=== PATIENT | female | born 1945 | race Caucasian/White ===

== ENCOUNTER → 2017-02-23 | Outpatient (CLI) | payer BC, MEDICARE ==
[2016-01-25 14:36] VITALS: BP 119/65
[~2017-02-23] MED LIST: ACET325T9 PO; ASPI-482 PO; ASPI325T11 PO; B12/1TAB PO; B6/F1TAB PO; BISA-42 PO; CELE100C PO; CELE200C PO; CETI10TA22 PO; CHOL200024 PO; CICL34.6 TP; DIPH50CA PO; DOCU-27 PO; ESZO3TAB9 PO; FEBU80TA2 PO; FERR159T3 PO; FERR325T58 PO; FLUT1DIS3 IH; FURO-68 PO; FURO80TA72 PO; GARL10002 PO; GINK120C PO; GLUC1TAB26 PO; HYDR200T PO; LEVO175T5 PO; LOSA100T6 PO; MELA10TA PO; METO10TA81 PO; MULT-208 PO; OMEG500C3 PO; PANT40GR PO; POTA20PA PO; PSYL660P18 PO; SIMV20TA3 PO; TRIA1TAB2 PO; UBID100C12 PO; VENTOLIN HFA18 GM INH
[2017-02-23 11:59] LABS: BASO # 0.1 x10^3/uL (0.0-0.2); BASO % 1 % (0-3); EOS % 7 % (0-3); HEMATOCRIT 38.7 % (36.0-47.0); HEMOGLOBIN 12.5 g/dL (12.0-15.5); LYMPH % 15 % (24-48); MEAN CORPUSCULAR HEMOGLOBIN 30 pg (25-35); MEAN CORPUSCULAR HGB CONC 32 g/dL (31-37); MEAN CORPUSCULAR VOLUME 92 fL (79-100); MONO % 8 % (0-9); NEUT % 68 % (31-73); PLATELET COUNT 373 x10^3/uL (140-400); RED CELL DISTRIBUTION WIDTH 14.6 % (11.5-14.5); WHITE BLOOD COUNT 6.5 x10^3/uL (4.0-11.0)
[2017-02-23 12:08] LABS: INR 1.1 (0.8-1.1); PROTHROMBIN TIME PATIENT 13.1 SEC (11.7-14.0)
[2017-02-23 12:29] LABS: ALBUMIN 3.4 g/dL (3.4-5.0); CALCIUM 9.4 mg/dL (8.5-10.1); CREATININE 1.3 mg/dL (0.6-1.0); GFR 40.5
[2017-02-23 12:56] LABS: BILIRUBIN,URINE NEGATIVE (NEG); GLUCOSE,URINE NEGATIVE (NEG); NITRITE,URINE NEGATIVE (NEG); PROTEIN,URINE NEGATIVE (NEG-TRACE); UROBILINOGEN,URINE 0.2 mg/dL (0.2 mg/dL)
[2017-02-23 13:06] LABS: BACTERIA,URINE FEW /HPF (0-FEW); RBC,URINE 0 /HPF (0-2); SQUAMOUS EPITHELIAL CELL,UR FEW /LPF; WBC,URINE OCC /HPF (0-4)
--- NOTE | 2017-02-23 13:07 | RAD ---
Indication preop. Anticipated knee surgery. PA and lateral views of the chest were obtained. Comparison is made to an exam 07/28/2012. The heart and pulmonary vessels are unremarkable. There is no acute parenchymal infiltrate. Significant pleural fluid is not seen. There is no pneumothorax. There is a large hiatus hernia. There is moderate compression of a midthoracic vertebral body segment representing a new finding compared to the prior study. IMPRESSION: No acute finding. Large hiatus hernia. Moderate compression of a midthoracic vertebral body segment new relative to the study 07/28/2012
== END | disposition home or self-care (01) ==
LOC: SURGPAT 10:32
PROVIDERS: ATTEND Orthopaedic Surgery
DX: M17.11 Unilateral primary osteoarthritis, right knee (principal)
CPT/HCPCS: 36415; 71020; 80048; 81001; 82040; 83036; 85027; 85610; 85651; 85730; 87641

== ENCOUNTER 2017-03-10 05:41 | Inpatient (IN) | payer BC, MEDICARE ==
--- NOTE | 2017-03-09 16:50 | PDOC1 ---
History and Physical Date of Admission Date of Admission DATE: 03/10/17 Identification/Chief Complaint Chief Complaint right knee osteoarthritis pain Problems: Source Source: Chart review History of Present Illness History of Present Illness Ms. Perdomo is a 71 year old female patient with right knee pain. She has left total knee arthroplasty on 01/22/16, which is doing well. She has tried and failed nonoperative treatment of right knee knee osteoarthritis. She is not able to perform her activities of daily living due to the pain. Past Medical History Cardiovascular: HTN, Hyperlipidemia Pulmonary: Asthma GI: GERD Musculoskeletal: Osteoarthritis Endocrine: Hypothyroidism Past Surgical History Past Surgical History: Cataract Removal, Total hip replacement, Total knee replacement, Tonsillectomy, Hysterectomy, Other (parathyroidectomy, back surgery ) Family History Family History: Cancer, Diabetes, Heart Disease, Stroke Social History Smoke: Quit (2002) ALCOHOL: rare Drugs: None Current Medications Current Medications Current Medications Morphine Sulfate 5 mg/Ketorolac Tromethamine 30 mg/Ropivacaine 60 ml/ Epinephrine HCl 0.5 mg/Sodium Chloride 100 ml @ 100 mls/hr 1X PERIOP ONCE INT ART ; Start 03/10/17 at 06:00; Stop 03/10/17 at 06:59 Fentanyl Citrate (Fentanyl 2ml Vial) 50 mcg PRN Q5MIN PRN IV Acute Pain; Start 03/09/17 at 12:15; Stop 03/10/17 at 12:14 Meperidine HCl (Demerol) 12.5 mg PRN Q5MIN PRN IV SHIVERING; Start 03/09/17 at 12:15; Stop 03/10/17 at 12:14 Prochlorperazine Edisylate (Compazine) 5 mg PRN Q6HRS PRN IV Nausea/Vomiting, 1st Choice; Start 03/09/17 at 12:15; Stop 03/10/17 at 12:14 Diphenhydramine HCl (Benadryl) 12.5 mg PRN Q2HR PRN IV ITCHING; Start 03/09/17 at 12:15; Stop 03/10/17 at 12:14 Midazolam HCl (Versed) 2 mg PRN 1X PRN IV PRIOR TO PROCEDURE; Start 03/09/17 at 12:15; Stop 03/10/17 at 12:14 Midazolam HCl (Versed) 1 mg PRN 1X PRN IV PRIOR TO PROCEDURE; Start 03/09/17 at 12:15; Stop 03/10/17 at 12:14 Fentanyl Citrate (Fentanyl 2ml Vial) 25 mcg PRN Q5MIN PRN IV X 2 DOSES FOR PAIN ; Start 03/09/17 at 12:15; Stop 03/10/17 at 12:14 Fentanyl Citrate (Fentanyl 2ml Vial) 50 mcg PRN Q5MIN PRN IV X 2 DOSES FOR PAIN ; Start 03/09/17 at 12:15; Stop 03/10/17 at 12:14 Ringer's Solution 1,000 ml @ 125 mls/hr Q8H IV ; Start 03/09/17 at 12:11; Stop 03/10/17 at 00:10 Lidocaine HCl 2 ml 1X PRN PRN ID IV START; Start 03/09/17 at 12:15; Stop at 12:14 Active Scripts Active Reported Zyrtec (Cetirizine Hcl) 10 Mg Tablet 10 Mg PO DAILY Melatonin 10 Mg Tablet 10 Mg PO HS Diphenhydramine Hcl 50 Mg Capsule 50 Mg PO HS Aspirin Ec (Aspirin) 325 Mg Tablet.dr 1 Tab PO BID Iron Supplement (Ferrous Sulfate) 325 Mg Tablet 1 Tab PO BID Ciclopirox 8% Treatment Kit (Ciclopirox/Ure/Camph/Menth/Euc) 34.6 Ml Solution 34.6 Ml TP DAILY may resume this as regualrly scheduled Iron (Ferrous Sulfate, Dried) 159 Mg Tablet.er 159 Mg PO DAILY last dose this am next dose tomorrow am Metamucil (Psyllium Husk) 660 Gm Powder 660 Gm PO DAILY not given in the hospital may reume when available Dulcolax (Bisacodyl) 5 Mg Tablet.dr 2 Tab PO HS last dose last night next dose tonight Simvastatin 20 Mg Tablet 1 Tab PO QHS last dose last night next dose tonight Plaquenil (Hydroxychloroquine Sulfate) 200 Mg Tablet 200 Mg PO BID last dose this am next dose tonight Colace (Docusate Sodium) 100 Mg Capsule 400 Cap PO HS last dose last night next dose tonight Levothyroxine Sodium 175 Mcg Tablet 1 Tab PO DAILY last dose this am next dose tomorrow am Lasix (Furosemide) 80 Mg Tablet 1 Tab PO DAILY16 last dose yesterday next dose is due when home Lasix (Furosemide) 40 Mg Tablet 1 Tab PO DAILY last dose this am next dose tomorrow am Reglan (Metoclopramide Hcl) 10 Mg Tablet 1 Tab PO QID last dose at 1100 next dose with supper Ventolin Hfa Inhaler (Albuterol Sulfate) 18 Gm Hfa.aer.ad 2 Puff INH QID not used in hospital may resume when needed Advair 250-50 Diskus (Fluticasone/Salmeterol) 1 Each Disk.w.dev 1 Puff IH BID last dose this am next dose tonight Aesmreyjji-Npxythiatvx-Xsg Tab (Gluc/Leo-Msm#2/C/D3/Trev/Born) 1 Each Tablet 1 Each PO Fish Oil (Zamora-3 Fatty Acids) 500 Mg Capsule 500 Mg PO not given in hospital may resume when available Lunesta (Eszopiclone) 3 Mg Tablet 1 Tab PO QHS last dose last night next dose tonight Maxzide 37.5 Mg-25 Mg Tablet (Triamterene/Hydrochlorothiazid) 1 Each Tablet 1 Tab PO DAILY last dose this am next dose tomorrow am Losartan Potassium 100 Mg Tablet 100 Mg PO DAILY last dose this am next dose tomorrow am Co Q-10 (Ubidecarenone) 100 Mg Capsule 100 Mg PO not given in hospital may reusme when available Foltx Tablet (B12/Levomefolate Calcium/B-6) 1 Each Tablet 1 Each PO HS not given in the hospital may resume when available Uloric (Febuxostat) 80 Mg Tablet 1 Tab PO DAILY last dose this morning next dose tomorrow am Protonix (Pantoprazole Sodium) 40 Mg Granpkt.dr 40 Mg PO DAILY last dose next dose is at 1600 D3 Dots (Cholecalciferol (Vitamin D3)) 2,000 Unit Tablet 1,000 Unit PO not given in hospital may resume when available Klor-Con (Potassium Chloride) 20 Meq Packet 40 Meq PO AFTRNOON last dos yesterday afternoon next dose this afternoon at 1600 Klor-Con (Potassium Chloride) 20 Meq Packet 20 Meq PO DAILY05 last dose this am next dose tomorrow am Ginkgo Biloba (Ginkgo Biloba Extract) 120 Mg Capsule 120 Mg PO Garlic 1,000 Mg Capsule 1,000 Mg PO not given in hospital may resume when available Multi-Day Vitamins (Multivitamin) 1 Each Tablet 1 Tab PO DAILY last dose this am next dose tomorrow am Allergies Allergies: Coded Allergies: propoxyphene (Verified Allergy, Intermediate, Itching, 01/22/16) erythromycin base (Verified Adverse Reaction, Intermediate, Hives, 01/22/16) hydromorphone (Verified Adverse Reaction, Intermediate, Itching, 01/22/16) morphine (Verified Adverse Reaction, Intermediate, Itching, 01/22/16) Uncoded Allergies: CHLORHEXADINE (Adverse Reaction, Severe, PURITIS, 02/23/17) Physical Exam General: Alert, Oriented X3, Cooperative, No acute distress HEENT: Atraumatic, EOMI Lungs: Normal air movement Heart: RRR Abdomen: Soft Extremities: No clubbing, No cyanosis, Normal pulses Skin: No rashes, No breakdown, No significant lesion Neuro: Normal speech, Sensation intact Psych/Mental Status: Mental status NL, Mood NL VTE Prophylaxis Ordered VTE Prophylaxis Devices: Yes VTE Pharmacological Prophylaxi: Yes Assessment/Plan Assessment/Plan Right knee osteoarthritis. Dr. Yepez and the patient discussed the potential risks of infection, neurovascular injury, bleeding, blood clots, need for revision surgery, or other potential surgical or anesthetic complications. She would like to proceed with total knee arthroplasty at a mutually convenient date, in February 2017. Last time she had trouble with constipation and requested Movantik prescription postoperatively, which sounds reasonable. We will use Movantik 25 mg po daily. She reports some sensitivities and allergies, and has the journey two "lady's knee" Oxinium on the left with size 4 femur, size 3 tibia, 32 mm patella. She had trouble with the topical chlorhexidine wipes last time, and I recommended using topical rubbing alcohol instead preoperatively. Finally, she did not like taking Celebrex, and prefers to use naproxen 500 mg twice a day which is reasonable, but some risk of bleeding. We will plan the naproxen for inflammation. ANGELLA LANGE Mar 09, 2017 16:50
[2017-03-09] MEDS: IV RINGERS,LACTATED 1000ML 1,000 ML IV SCH (20:11)
[~2017-03-10] VITALS: Ht 167.6 cm; Wt 107.0 kg
[2017-03-10] VITALS (9 sets, daily range): BP systolic 97–117; BP diastolic 53–73
[~2017-03-10 05:41] MED LIST changes: +DOCU-109 PO; -DOCU-27 PO; +ESZO3TAB28 PO; -ESZO3TAB9 PO; +LIDOCAINE 1% 1 ML SYRINGE. ID PRN; +MEPERIDINE PF 25 MG/ML VIAL. IV PRN; +MIDAZOLAM HCL/PF 2 MG/2 ML VIAL. IV PRN; +PROCHLORPERAZINE 10 MG/2 ML VIAL. IV PRN; -UBID100C12 PO; +UBID100C40 PO; +diphenhydrAMINE 50 MG/ML VIAL IV PRN; +fentaNYL PF VIAL 100 MCG/2 ML VIAL IV PRN
[2017-03-10] MEDS ORDERED: MORPHINE SULFATE 5 MG, KETOROLAC TROMETHAMINE 30 MG, ROPIVacaine 0.5% PF 60 ML, EPINEPH... INT ART ONE ×5 (06:00)
[2017-03-10] MEDS ORDERED: TRANEXAMIC ACID 1,000 MG in IV NORMAL SALINE 50ML 50 ML INJ ONE ×2 (06:00→08:00)
[2017-03-10] MEDS ORDERED: TRAM50TA PO (06:12)
[2017-03-10] MEDS: IV RINGERS,LACTATED 1000ML 1,000 ML IV SCH (06:39)
[2017-03-10] MEDS ORDERED: TOBRAMYCIN POWDER 1.2 GM VIAL. ONE (06:44)
[2017-03-10] MEDS ORDERED: VANCOMYCIN 1 GM VIAL. ONE (06:44)
[2017-03-10] MEDS ORDERED: DEXAMETHASONE SOD PHOS 20 MG/5 ML VIAL. ONE (06:57)
[2017-03-10] MEDS ORDERED: PROPOFOL 20 ML IV ONE ×2 (06:57→07:44)
[2017-03-10] MEDS ORDERED: LIDOCAINE 2% PF Vial for OR 5 ML VIAL. ONE (06:57)
[2017-03-10] MEDS ORDERED: ONDANSETRON PF 4 MG/2 ML VIAL. ONE (06:57)
[2017-03-10] MEDS ORDERED: ePHEDrine PF IN SALINE 50 MG/5 ML DISP.SYRIN IV ONE ×2 (06:57→10:29)
[2017-03-10] MEDS ORDERED: fentaNYL PF VIAL 100 MCG/2 ML VIAL ONE ×2 (06:58→07:36)
[2017-03-10] MEDS ORDERED: ROCURONIUM 50 MG/5 ML VIAL. ONE (07:03)
[2017-03-10] MEDS ORDERED: MIDAZOLAM HCL/PF 5 MG/5 ML VIAL. ONE (07:11)
[2017-03-10] MEDS ORDERED: SUCCINYLCHOLINE 200 MG/10 ML VIAL. ONE (07:15)
[2017-03-10] MEDS ORDERED: FAMOTIDINE 20 MG/2 ML VIAL ONE (07:55)
[2017-03-10] MEDS ORDERED: NEOSTIGMINE METHYLSULFATE 5 MG/5 ML SYRINGE. ONE (07:56)
[2017-03-10] MEDS ORDERED: GLYCOPYRROLATE 1 MG/5 ML VIAL. ONE (07:57)
[2017-03-10] MEDS ORDERED: PHENYLEPHRINE in 0.9% NACL PF 1 MG/10 ML DISP.SYRIN. IV ONE (09:02)
[2017-03-10] MEDS ORDERED: SEVOFLURANE > 120 MINUTES. IH ONE ×2 (09:19→10:38)
[2017-03-10] MEDS ORDERED: CALCIUM CARBONATE 500 MG TAB.CHEW PO PRN (09:45)
[2017-03-10] MEDS ORDERED: traMADol 50 MG TABLET PO PRN (09:45)
[2017-03-10] MEDS ORDERED: 0.9 % SODIUM CHLORIDE 10 ML DISP.SYRIN. IV PRN (09:45)
[2017-03-10] MEDS ORDERED: ZOLPIDEM 5 MG TABLET. PO PRN (09:45)
[2017-03-10] MEDS ORDERED: METOCLOPRAMIDE HCL 10 MG/2 ML VIAL. IV PRN (09:45)
[2017-03-10] MEDS ORDERED: DEXTROSE 50% 25 GM / 50ML DISP.SYRIN. IV PRN (09:45)
[2017-03-10] MEDS ORDERED: HYDROcodone/APAP 7.5/325MG 1 TAB TABLET PO PRN (09:45)
[2017-03-10] MEDS ORDERED: fentaNYL PF VIAL 100 MCG/2 ML VIAL IV PRN (09:45)
[2017-03-10] MEDS ORDERED: diphenhydrAMINE 50 MG/ML VIAL IV PRN (09:45)
[2017-03-10] MEDS ORDERED: PROCHLORPERAZINE 10 MG/2 ML VIAL. IV PRN (09:45)
[2017-03-10] MEDS ORDERED: oxyCODONE/APAP 5/325 1 TAB TABLET PO PRN (09:45)
[2017-03-10] MEDS ORDERED: PROCHLORPERAZINE 5 MG TABLET. PO PRN (09:45)
[2017-03-10] MEDS ORDERED: oxyCODONE/APAP 7.5/325 1 TAB TABLET PO PRN (09:45)
[2017-03-10] MEDS: fentaNYL PF VIAL 100 MCG/2 ML VIAL IV PRN ×7 (10:05→21:48)
--- NOTE | 2017-03-10 10:31 | RAD ---
Indication postop. AP and lateral views of the right knee were obtained. There is a total knee replacement. Postoperative changes are seen in the soft tissues. Surgical drain is noted. No unexpected finding is seen
[2017-03-10] MEDS: IV DEXTROSE 5 %-0.45 % NACL 1,000 ML IV SCH ×2 (10:51→21:30)
[2017-03-10] MEDS: HYDROcodone/APAP 10/325 1 TAB TABLET PO PRN ×3 (11:58→19:20)
[2017-03-10] MEDS ORDERED: NON FORMULARY ITEM (Albuterol Sulfate (Ventolin Hfa Inhaler) 2 PUFF) INH SCH (13:00)
[2017-03-10] MEDS: POTASSIUM CHLORIDE 20 MEQ TABLET.ER. PO SCH (13:00)
--- NOTE | 2017-03-10 13:00 | PDOC4 ---
Operative Note Operative Note Date of Procedure: March 10, 2017 Pre-Op Diagnosis: Osteoarthritis right knee Post-Op Diagnosis: Osteoarthritis right knee Procedure: right total knee arthroplasty Surgeon: Jenelle Yepez MD Head End Desizing Machine Operator: Ana Boles PA-C Anesthesia: General EBL: 100 mL Specimens Obtained: right knee bone and soft tissue Complications: none Implant Company: [employer] Drains: Hemovac plus pain catheter Tourniquet time: 60 Minutes Tourniquet Pressure: 350 mm Hg Indications for Procedure: Arthritis pain unrelieved by nonoperative management. Findings: Severe osteoarthritis with bone on bone contact in all three compartments Implants used: Size 3 right bicruciate stabilized Journey II BCS Oxinium femoral component, size 4 right Journey nonporous tibial baseplate, size 3-4 11 mm right Journey II BCS XLPE articular insert, 32 mm oval Cecy II resurfacing patellar component Procedure in Detail: The patient was identified in the preoperative holding area, and the correct right extremity was marked by me. The patient was taken to the operating room where the patient was anesthetized by the Department of Anesthesia. Preoperative antibiotics were given intravenously. Tranexamic acid 1 g was given intravenously for intraoperative hemostasis. A "time-out" procedure was performed. The patient was positioned supine on the operative table with a tourniquet on the upper thigh. The limb was thoroughly prepped and draped in sterile fashion. An impervious stockinet and adhesive drape were used such that the skin was entirely covered. An Kohler leg gonzalez was used. The operating team wore personal exhaust-ventilated hoods. The tourniquet was inflated to 350 mm Hg. A midline skin incision was made with a scalpel using the patella and tibial tubercle as landmarks. Electrocautery was used for hemostasis. My appeals assistant used rake retractors. A medial parapatellar arthrotomy incision was used with extension into the distal quadriceps tendon. The patella was retracted laterally and Hohmann retractors were now used by my appeals assistant. Excess synovium, the menisci, and the cruciate ligaments were resected sharply. The patella was assessed and excess synovium and osteophytes around the patellar articulation were removed. The patella was measured with a caliper, cut freehand with a saw using caliper measurements, sized, and then drilled for an oval three-pegged patella component. Periarticular injection was used in the suprapatellar pouch and distal quadriceps muscle. Whitesides's line was assessed on the femur. An intra-medullary 5 degree cutting guide was pinned to the femur, and a distal femoral cut was made with an oscillating saw. An additional 2 mm resection was used due to the deep femoral sulcus, and deficient condyle.My appeals assistant held Hohmann retractors and an Army-Dinosaur retractor to protect the medial and lateral collateral ligaments, the patellar tendon, the skin and the other soft tissues. An anterior referencing guide was applied with external rotation of 4 to match Whitesides line. A 5-in-1 Journey II cutting guide was then applied and pinned to the femur. The posterior, anterior, and all chamfer cuts were made with the oscillating saw. An extramedullary guide was pinned to the tibia and rotational alignment and the planned resection thickness assessed. An external alignment paul was used to verify the planned cut in the varus-valgus plane and regarding posterior slope referencing the tibial tubercle, the tibial shaft, the ankle joint, and the second metatarsal. The upper tibia was cut made with an oscillating saw. My appeals assistant held Hohmann retractors and a posterior cruciate ligament retractor to protect the medial and lateral collateral ligaments, the patellar tendon, the skin, the peroneal nerve and the other soft tissues. The upper tibia was sized with a trial baseplate. The posterior compartment was cleared of osteophytes and loose bodies, and posterior capsule released. Daria-articular injection was used in the posterior compartment. The box cut for a posterior stabilized component was made. A preliminary reduction was performed with a trial femur, trial tibial baseplate and trial polyethylene. Soft-tissue balancing was now performed, and extension and rotation of the alignments was checked using a guide paul in the tibial trial and a guide pin in the femur. No additional releases were required. The stability was assessed using different thicknesses of tibial articular surface to find satisfactory stability and good range of motion. The rotation of the tibial component was marked on the upper tibia. Final trial reduction was now performed verifying patella tracking and tibiofemoral stability and alignment. The tibia preparation was completed with a drill, saw, and fin punch at the previously noted rotation. The final implants were verified and opened. Outer gloves were changed by the operating team. The bone cuts were washed thoroughly with the [employer] InterPulse device and dried. Two packages of Palacos bone cement were mixed in powdered form with 1 gm of Vancomycin and 1.2 g tobramycin, then vacuum-mixed with the monomer, and placed into a cement gun. The cut surfaces of the bone were thoroughly dried with Pierre-tip suction and with laparotomy sponges for cement interdigitation. The final components were cemented into place. The knee was kept at full extension while the cement hardened, and excess cement was removed. Tranexamic acid 1 g was redosed intravenously for additional intraoperative hemostasis. A final periarticular injection was used for pain relief. The tourniquet was released, and electrocautery was used for hemostasis. A final check of [id number] and stability was made, and the polyethylene implant final size was chosen. The polyethylene implant was secured to the tibial baseplate, and the knee was reduced a final time. Thorough irrigation was used. Hemovac and pain catheter were used.The arthrotomy was closed with interrupted [id number] #1 PDS suture. The arthrotomy incision was then run with #1 STRATAFIX Symmetric PDS Plus Knotless suture. The subcutaneous tissues were closed with #2-0 Vicryl by my appeals assistant. The skin was reapproximated with STRATAFIX Spiral MONOCRYL Plus Knotless suture by my appeals assistant. The skin incision was then covered and reinforced with Dermabond Prineo mesh skin closure dressing. A bulky sterile gauze dressing was applied. Needle and sponge counts were correct. JENELLE YEPEZ MD Mar 10, 2017 13:00
[2017-03-10] MEDS: METOCLOPRAMIDE 10 MG TABLET. PO SCH ×3 (13:24→19:21)
[2017-03-10] MEDS: FUROSEMIDE 80 MG TABLET. PO SCH (15:58)
[2017-03-10] MEDS: ALBUTEROL SULFATE 2.5 MG/3 ML NEBU. NEB SCH ×2 (16:16→19:20)
[2017-03-10] MEDS: FERROUS SULFATE 325 MG TABLET. PO SCH (17:25)
[2017-03-10] MEDS: BUDESONIDE 0.5 MG/2 ML NEBU. NEB SCH (19:20)
[2017-03-10] MEDS: BISACODYL 5 MG TABLET.DR. PO SCH (19:57)
[2017-03-10] MEDS: SIMVASTATIN 20 MG TABLET PO SCH (19:58)
[2017-03-10] MEDS: NAPROXEN 500 MG TABLET PO SCH (19:58)
[2017-03-10] MEDS: ASPIRIN ENTERIC COATED 325 MG TABLET.DR. PO SCH (19:58)
[2017-03-10] MEDS ORDERED: NON FORMULARY ITEM (Fluticasone/Salmeterol (Advair 250-50 Diskus) 1 PUFF) IH SCH (21:00)
[2017-03-10] MEDS ORDERED: NON FORMULARY ITEM (Melatonin 10 MG) PO SCH (21:00)
[2017-03-10] MEDS ORDERED: DOCUSATE SODIUM 100 MG CAPSULE. PO SCH (21:00)
[2017-03-10] MEDS: ZOLPIDEM 5 MG TABLET. PO SCH (21:47)
[2017-03-11] MEDS: fentaNYL PF VIAL 100 MCG/2 ML VIAL IV PRN ×5 (03:00→19:39)
[2017-03-11 03:01] VITALS: BP 93/64
[2017-03-11 05:39] LABS: HEMATOCRIT 31.2 % (36.0-47.0); HEMOGLOBIN 10.2 g/dL (12.0-15.5); RED BLOOD COUNT 3.42 x10^6/uL (3.50-5.40); RED CELL DISTRIBUTION WIDTH 14.1 % (11.5-14.5); WHITE BLOOD COUNT 9.9 x10^3/uL (4.0-11.0)
[2017-03-11] MEDS: HYDROcodone/APAP 10/325 1 TAB TABLET PO PRN ×2 (05:58→09:33)
[2017-03-11] MEDS: LEVOTHYROXINE 175 MCG TABLET PO SCH (05:58)
[2017-03-11] MEDS ORDERED: MAGNESIUM HYDROXIDE 2,400 MG/30 ML ORAL.SUSP. PO PRN (06:00)
[2017-03-11] MEDS: PANTOPRAZOLE 40 MG TABLET.DR. PO SCH (06:12)
[2017-03-11 06:33] VITALS: BP 98/61
[2017-03-11] MEDS: ALBUTEROL SULFATE 2.5 MG/3 ML NEBU. NEB SCH ×4 (07:30→19:28)
[2017-03-11] MEDS: BUDESONIDE 0.5 MG/2 ML NEBU. NEB SCH ×2 (07:30→19:28)
[2017-03-11] MEDS: IV DEXTROSE 5 %-0.45 % NACL 1,000 ML IV SCH ×2 (08:00→18:00)
[2017-03-11] MEDS: VITAMIN B12,B9,B6 COMPLEX 1 TABLET. PO SCH (08:40)
[2017-03-11] MEDS: MULTIVITAMIN with MINERAL TABLET. PO SCH (08:40)
[2017-03-11] MEDS: CHOLECALCIFEROL (VITAMIN D3) 1,000 UNIT TABLET PO SCH (08:40)
[2017-03-11] MEDS: FERROUS SULFATE 325 MG TABLET. PO SCH ×2 (08:41→17:28)
[2017-03-11] MEDS: NAPROXEN 500 MG TABLET PO SCH ×2 (08:41→21:02)
[2017-03-11] MEDS: FEBUXOSTAT 40 MG TABLET PO SCH (08:41)
[2017-03-11] MEDS: FUROSEMIDE 40 MG TABLET. PO SCH (08:41)
[2017-03-11] MEDS: SENNOSIDES/DOCUSATE 8.6/50MG TABLET. PO SCH (08:41)
[2017-03-11] MEDS: METOCLOPRAMIDE 10 MG TABLET. PO SCH ×4 (08:41→21:00)
[2017-03-11] MEDS: ASPIRIN ENTERIC COATED 325 MG TABLET.DR. PO SCH ×2 (08:41→21:02)
[2017-03-11] MEDS: POTASSIUM CHLORIDE 20 MEQ TABLET.ER. PO SCH ×2 (08:42→12:29)
[2017-03-11] MEDS: LOSARTAN POTASSIUM 50 MG TABLET. PO SCH (08:42)
[2017-03-11] MEDS: PSYLLIUM HUSK (SUGAR FREE) 1 PKT PACKET PO SCH (08:43)
[2017-03-11] MEDS: TRIAMTERENE/HCTZ 37.5/25MG TABLET. PO SCH (08:43)
[2017-03-11] MEDS ORDERED: CETIRIZINE HCL 10 MG TABLET. PO SCH (09:00)
[2017-03-11] MEDS ORDERED: [UNRECOGNIZED DRUG - OTHER] TP SCH (09:00)
--- NOTE | 2017-03-11 12:40 | PDOC ---
PROGRESS NOTES Subjective Subjective We held her Plaquenil postop due to increased risk of infection. She states she needs her Plaquenil or her hands swell. Objective Vital Signs Vital Signs Date Time Temp Pulse Resp B/P (MAP) Pulse Ox O2 Delivery O2 Flow Rate FiO2 03/11/17 12:30 18 Room Air 03/11/17 08:42 103 98/61 03/11/17 07:35 97 03/11/17 06:33 99.0 99.0 03/10/17 12:15 1.0 Physical Exam Dressing dry and intact Pain catheter and Hemovac in place. Good dorsiflexion and plantarflexion of the foot with no evidence of neurovascular injury or DVT. Calves are soft and non-tender. Negative Homans. Peripheral pulses and light touch sensation intact. Labs Laboratory Tests Test 03/11/17 05:25 White Blood Count 9.9 x10^3/uL (4.0-11.0) Red Blood Count 3.42 x10^6/uL (3.50-5.40) Hemoglobin 10.2 g/dL (12.0-15.5) Hematocrit 31.2 % (36.0-47.0) Mean Corpuscular Volume 91 fL (79-100) Mean Corpuscular Hemoglobin 30 pg (25-35) Mean Corpuscular Hemoglobin Concent 33 g/dL (31-37) Red Cell Distribution Width 14.1 % (11.5-14.5) Platelet Count 324 x10^3/uL (140-400) Laboratory Tests Test 03/11/17 05:25 White Blood Count 9.9 x10^3/uL (4.0-11.0) Red Blood Count 3.42 x10^6/uL (3.50-5.40) Hemoglobin 10.2 g/dL (12.0-15.5) Hematocrit 31.2 % (36.0-47.0) Mean Corpuscular Volume 91 fL (79-100) Mean Corpuscular Hemoglobin 30 pg (25-35) Mean Corpuscular Hemoglobin Concent 33 g/dL (31-37) Red Cell Distribution Width 14.1 % (11.5-14.5) Platelet Count 324 x10^3/uL (140-400) Imaging Postoperative x-rays reviewed by me, showing satisfactory total knee replacement , with no apparent complications. Assessment Assessment POD #1 TKA Problems: Plan Plan of Care Continue POC including DVT prophylaxis and physical therapy. She states she must take her Plaquenil, so we will restart this. Mag citrate for constipation. ANGELLA LANGE Mar 11, 2017 12:40
[2017-03-11] MEDS ORDERED: MAGNESIUM CITRATE 296 ML SOLUTION. PO PRN (12:45)
[2017-03-11] MEDS: HYDROXYCHLOROQUINE 200 MG TABLET PO SCH ×2 (13:18→21:02)
[2017-03-11 15:30] VITALS: BP 160/93
[2017-03-11] MEDS ORDERED: BISACODYL 10 MG SUPP.RECT. PR PRN (16:00)
[2017-03-11] MEDS: FUROSEMIDE 80 MG TABLET. PO SCH (17:27)
[2017-03-11] MEDS: oxyCODONE/APAP 10/325 1 TAB TABLET PO PRN ×2 (17:28→21:04)
[2017-03-11 18:03] VITALS: BP 100/49
[2017-03-11] MEDS: CETIRIZINE HCL 10 MG TABLET. PO SCH (21:02)
[2017-03-11] MEDS: ZOLPIDEM 5 MG TABLET. PO SCH (21:02)
[2017-03-11] MEDS: SIMVASTATIN 20 MG TABLET PO SCH (21:02)
[2017-03-11] MEDS: BISACODYL 5 MG TABLET.DR. PO SCH (21:03)
[2017-03-11] MEDS: ACETAMINOPHEN 325 MG TABLET. PO PRN (21:06)
[2017-03-12] MEDS: oxyCODONE/APAP 10/325 1 TAB TABLET PO PRN ×7 (00:52→22:37)
[2017-03-12] MEDS: PANTOPRAZOLE 40 MG TABLET.DR. PO SCH (04:53)
[2017-03-12] MEDS: LEVOTHYROXINE 175 MCG TABLET PO SCH (04:53)
[2017-03-12] MEDS: ACETAMINOPHEN 325 MG TABLET. PO PRN ×3 (04:53→12:18)
[2017-03-12 05:54] LABS: HEMATOCRIT 32.5 % (36.0-47.0); HEMOGLOBIN 10.7 g/dL (12.0-15.5)
[2017-03-12 06:06] VITALS: BP 119/74
[2017-03-12] MEDS: ALBUTEROL SULFATE 2.5 MG/3 ML NEBU. NEB SCH ×3 (07:10→14:58)
[2017-03-12] MEDS: BUDESONIDE 0.5 MG/2 ML NEBU. NEB SCH (07:10)
[2017-03-12] MEDS: CHOLECALCIFEROL (VITAMIN D3) 1,000 UNIT TABLET PO SCH (08:13)
[2017-03-12] MEDS: VITAMIN B12,B9,B6 COMPLEX 1 TABLET. PO SCH (08:13)
[2017-03-12] MEDS: ASPIRIN ENTERIC COATED 325 MG TABLET.DR. PO SCH ×2 (08:13→20:54)
[2017-03-12] MEDS: NAPROXEN 500 MG TABLET PO SCH ×2 (08:14→20:54)
[2017-03-12] MEDS: LOSARTAN POTASSIUM 50 MG TABLET. PO SCH (08:14)
[2017-03-12] MEDS: FEBUXOSTAT 40 MG TABLET PO SCH (08:15)
[2017-03-12] MEDS: TRIAMTERENE/HCTZ 37.5/25MG TABLET. PO SCH ×2 (08:15→09:00)
[2017-03-12] MEDS: FERROUS SULFATE 325 MG TABLET. PO SCH ×2 (08:15→15:08)
[2017-03-12] MEDS: MULTIVITAMIN with MINERAL TABLET. PO SCH (08:15)
[2017-03-12] MEDS: SENNOSIDES/DOCUSATE 8.6/50MG TABLET. PO SCH (08:16)
[2017-03-12] MEDS: HYDROXYCHLOROQUINE 200 MG TABLET PO SCH ×2 (08:16→21:07)
[2017-03-12] MEDS: POTASSIUM CHLORIDE 20 MEQ TABLET.ER. PO SCH ×2 (08:16→12:22)
[2017-03-12] MEDS: FUROSEMIDE 40 MG TABLET. PO SCH (08:16)
[2017-03-12] MEDS: METOCLOPRAMIDE 10 MG TABLET. PO SCH ×4 (08:21→20:53)
[2017-03-12] MEDS: PSYLLIUM HUSK (SUGAR FREE) 1 PKT PACKET PO SCH (08:24)
[2017-03-12 11:30] VITALS: BP 103/73
--- NOTE | 2017-03-12 12:33 | PDOC ---
PROGRESS NOTES Subjective Subjective Doing well. Only reports mild pain increase from yesterday. Objective Vital Signs Vital Signs Date Time Temp Pulse Resp B/P (MAP) Pulse Ox O2 Delivery O2 Flow Rate FiO2 03/12/17 12:18 16 03/12/17 11:52 Room Air 03/12/17 11:30 97.8 93 103/73 (83) 95 97.8 03/12/17 10:00 1.0 Physical Exam Expected swelling. Pain catheter and drain have been removed. Incision with spotty drainage only from drain sites. Prineo intact and dry. Calf soft and nontender. Negative homans sign. Good AROM ankle. Peripheral pulses and light touch sensation intact. Labs Laboratory Tests Test 03/11/17 05:25 03/12/17 05:30 White Blood Count 9.9 x10^3/uL (4.0-11.0) Red Blood Count 3.42 x10^6/uL (3.50-5.40) Hemoglobin 10.2 g/dL (12.0-15.5) 10.7 g/dL (12.0-15.5) Hematocrit 31.2 % (36.0-47.0) 32.5 % (36.0-47.0) Mean Corpuscular Volume 91 fL (79-100) Mean Corpuscular Hemoglobin 30 pg (25-35) Mean Corpuscular Hemoglobin Concent 33 g/dL (31-37) 33 g/dL (31-37) Red Cell Distribution Width 14.1 % (11.5-14.5) Platelet Count 324 x10^3/uL (140-400) Laboratory Tests Test 03/12/17 05:30 Hemoglobin 10.7 g/dL (12.0-15.5) Hematocrit 32.5 % (36.0-47.0) Mean Corpuscular Hemoglobin Concent 33 g/dL (31-37) Imaging X-rays independently reviewed by me and show satisfactory TKA alignment and no apparent complications. Assessment Assessment POD 2 TKA Problems: Plan Plan of Care Continue DVT prophylaxis and physical therapy. Planned discharge tomorrow. Office F/U in 10-14 days. JENELLE RUTH MD Mar 12, 2017 12:33
--- NOTE | 2017-03-12 13:53 | PATHOLOGY ---
PATHOLOGY REPORT * * * * * * * * FINAL DIAGNOSIS: Bone and soft tissue, "right knee bone and tissue," joint resection: - Degeneration of cartilage consistent with degenerative joint disease. (JCARLOS:; d/t: 03/12/17) REPORT ELECTRONICALLY SIGNED BY: Jovan Regalado M.D. DATE/TIME: 03/12/2017 13:52 * * * * * * * * GROSS PATHOLOGY: Received in formalin labeled "Shahana Perdomo, right knee bone and tissue," are multiple segments of bone, including tibial plateau, measuring 14.5 x 12.2 x 4.4 cm in aggregate dimensions admixed with soft tissue; meniscus is present. The specimen shows focal eburnation of the articular surfaces. [employer] sections of bone and soft tissue are submitted in cassette A1, following decalcification. (KAH; 03/10/2017) INITIAL CPT CODE(S): A; 62629, 41013 Professional services [place] [facility] [place] [address] Technical services performed by [facility] at [address] [place] [address]. SPECIMEN(S) RECEIVED: A.Right knee bone and tissue CLINICAL HISTORY: Right knee osteoarthritis PATIENT: SHAHANA PERDOMO /AGE: 110/15/1945 (Age: 71) PATIENT #: [id number] ALT CASE #: SPECIMEN COLLECTION DATE: 03/10/2017 SPECIMEN RECEIVED DATE: 03/10/2017 [facility] - [address] [place] [address] - PHONE: [phone] * * * END OF REPORT * * *
[2017-03-12 15:03] VITALS: BP 112/53
[2017-03-12] MEDS: FUROSEMIDE 80 MG TABLET. PO SCH (15:07)
[2017-03-12] MEDS: traMADol 50 MG TABLET PO PRN ×2 (15:08→18:17)
[2017-03-12 17:45] VITALS: BP 119/56
[2017-03-12] MEDS: CETIRIZINE HCL 10 MG TABLET. PO SCH (20:53)
[2017-03-12] MEDS: ZOLPIDEM 5 MG TABLET. PO SCH (20:53)
[2017-03-12] MEDS: SIMVASTATIN 20 MG TABLET PO SCH (20:53)
[2017-03-12] MEDS: BISACODYL 5 MG TABLET.DR. PO SCH (20:54)
[2017-03-12 23:03] VITALS: BP 112/63
[2017-03-13] MEDS: oxyCODONE/APAP 10/325 1 TAB TABLET PO PRN ×3 (02:39→10:59)
[2017-03-13 03:02] VITALS: BP 99/61
[2017-03-13 06:27] VITALS: BP 114/68
[2017-03-13] MEDS: PANTOPRAZOLE 40 MG TABLET.DR. PO SCH (06:29)
[2017-03-13] MEDS: LEVOTHYROXINE 175 MCG TABLET PO SCH (06:29)
[2017-03-13] MEDS: ALBUTEROL SULFATE 2.5 MG/3 ML NEBU. NEB SCH (06:49)
[2017-03-13] MEDS: BUDESONIDE 0.5 MG/2 ML NEBU. NEB SCH (06:49)
[2017-03-13] MEDS ORDERED: OXYC-328 PO (08:07)
[2017-03-13] MEDS: VITAMIN B12,B9,B6 COMPLEX 1 TABLET. PO SCH (08:19)
[2017-03-13] MEDS: ASPIRIN ENTERIC COATED 325 MG TABLET.DR. PO SCH (08:20)
[2017-03-13] MEDS: FEBUXOSTAT 40 MG TABLET PO SCH (08:20)
[2017-03-13] MEDS: CHOLECALCIFEROL (VITAMIN D3) 1,000 UNIT TABLET PO SCH (08:20)
[2017-03-13] MEDS: POTASSIUM CHLORIDE 20 MEQ TABLET.ER. PO SCH (08:20)
[2017-03-13] MEDS: SENNOSIDES/DOCUSATE 8.6/50MG TABLET. PO SCH (08:20)
[2017-03-13] MEDS: NAPROXEN 500 MG TABLET PO SCH (08:21)
[2017-03-13] MEDS: MULTIVITAMIN with MINERAL TABLET. PO SCH (08:21)
[2017-03-13] MEDS: FUROSEMIDE 40 MG TABLET. PO SCH (08:21)
[2017-03-13] MEDS: FERROUS SULFATE 325 MG TABLET. PO SCH (08:21)
[2017-03-13] MEDS: METOCLOPRAMIDE 10 MG TABLET. PO SCH (08:25)
[2017-03-13] MEDS: HYDROXYCHLOROQUINE 200 MG TABLET PO SCH (08:27)
[2017-03-13] MEDS: PSYLLIUM HUSK (SUGAR FREE) 1 PKT PACKET PO SCH (09:00)
[2017-03-13] MEDS: TRIAMTERENE/HCTZ 37.5/25MG TABLET. PO SCH (09:00)
[2017-03-13] MEDS: LOSARTAN POTASSIUM 50 MG TABLET. PO SCH (09:00)
[2017-03-13 11:10] VITALS: BP 119/66
--- NOTE | 2017-03-13 11:29 | PDOC3 ---
Discharge Summary Visit Information Date of Admission: Mar 10, 2017 Date of Discharge: Mar 13, 2017 Admitting Diagnosis: right knee osteoarthritis pain Brief Hospital Course Allergies Allergies Coded Allergies Type Severity Reaction Last Updated Verified chlorhexidine Allergy Intermediate PRURITIS 03/11/17 Yes morphine Allergy Intermediate Itching/HIVES 03/10/17 Yes propoxyphene Allergy Intermediate Itching 03/10/17 Yes erythromycin base Adverse Reaction Intermediate Hives 03/10/17 Yes hydromorphone Adverse Reaction Intermediate Itching 03/10/17 Yes Vital Signs Vital Signs Date Time Temp Pulse Resp B/P (MAP) Pulse Ox O2 Delivery O2 Flow Rate FiO2 03/13/17 10:59 20 Room Air 03/13/17 09:00 104 89/63 03/13/17 06:49 96 03/13/17 06:27 98.3 98.3 03/12/17 10:00 1.0 Lab Results Laboratory Tests Test 03/12/17 05:30 Hemoglobin 10.7 g/dL (12.0-15.5) Hematocrit 32.5 % (36.0-47.0) Mean Corpuscular Hemoglobin Concent 33 g/dL (31-37) Brief Hospital Course 71 year old female who presented with knee osteoarthritis, for elective right total knee arthroplasty. The patient underwent total knee arthroplasty under general anesthesia the day of admission. Perioperative antibiotics and DVT prophylaxis were used. Postoperatively physical therapy and case management were consulted. The patient progressed and is stable for discharge. Discharge Information Condition at Discharge: Stable Follow Up: Weeks (2) Disposition/Orders: D/C to Home Scheduled Albuterol Sulfate (Ventolin Hfa Inhaler), 2 PUFF INH QID, (Reported) Aspirin (Aspirin Ec), 1 TAB PO BID, (Reported) B12/Levomefolate Calcium/B-6 (Foltx Tablet), 1 EACH PO HS, (Reported) Bisacodyl (Dulcolax), 2 TAB PO HS, (Reported) Cetirizine Hcl (Zyrtec), 10 MG PO DAILY, (Reported) Ciclopirox/Ure/Camph/Menth/Euc (Ciclopirox 8% Treatment Kit), 34.6 ML TP DAILY, (Reported) Diphenhydramine Hcl (Diphenhydramine Hcl), 50 MG PO HS, (Reported) Docusate Sodium (Colace), 400 CAP PO HS, (Reported) Eszopiclone (Lunesta), 1 TAB PO QHS, (Reported) Febuxostat (Uloric), 1 TAB PO DAILY, (Reported) Ferrous Sulfate (Iron Supplement), 1 TAB PO BID, (Reported) Ferrous Sulfate, Dried (Iron), 159 MG PO DAILY, (Reported) Fluticasone/Salmeterol (Advair 250-50 Diskus), 1 PUFF IH BID, (Reported) Furosemide (Lasix), 1 TAB PO DAILY, (Reported) Furosemide (Lasix), 1 TAB PO DAILY16, (Reported) Hydroxychloroquine Sulfate (Plaquenil), 200 MG PO BID, (Reported) Levothyroxine Sodium (Levothyroxine Sodium), 1 TAB PO DAILY, (Reported) Losartan Potassium (Losartan Potassium), 100 MG PO DAILY, (Reported) Melatonin (Melatonin), 10 MG PO HS, (Reported) Metoclopramide Hcl (Reglan), 1 TAB PO QID, (Reported) Multivitamin (Multi-Day Vitamins), 1 TAB PO DAILY, (Reported) Pantoprazole Sodium (Protonix), 40 MG PO DAILY, (Reported) Potassium Chloride (Klor-Con), 20 MEQ PO DAILY05, (Reported) Potassium Chloride (Klor-Con), 40 MEQ PO AFTRNOON, (Reported) Psyllium Husk (Metamucil), 660 GM PO DAILY, (Reported) Simvastatin (Simvastatin), 1 TAB PO QHS, (Reported) Tramadol Hcl (Tramadol Hcl), 1 TAB PO PRN Q6HRS, (Reported) Triamterene/Hydrochlorothiazid (Maxzide 37.5 Mg-25 Mg Tablet), 1 TAB PO DAILY, ( Reported) Scheduled PRN Oxycodone/Apap 10-325 (Percocet 10-325 Mg Tablet), 1-2 TAB PO PRN Q4HRS PRN for PAIN, (Reported) Miscellaneous Medications Cholecalciferol (Vitamin D3) (D3 Dots), 1,000 UNIT PO, (Reported) Garlic (Garlic), 1,000 MG PO, (Reported) Ginkgo Biloba Extract (Ginkgo Biloba), 120 MG PO, (Reported) Gluc/Leo-Msm#2/C/D3/Trev/Born (Utxmhtpsuj-Ghizfcjocsl-Qds Tab), 1 EACH PO, ( Reported) [place]-3 Fatty Acids (Fish Oil), 500 MG PO, (Reported) Ubidecarenone (Co Q-10), 100 MG PO, (Reported) Patient Instructions Patient Instructions Patient Instructions Continue to WBAT with walker. Keep dressing dry and intact. F/U with [facility] in 10-14 days. Call for appointment. Physical therapy for TKA Continue DVT prophylaxis with aspirin 325mg twice daily. ANGELLA LANGE Mar 13, 2017 11:29
== END 2017-03-13 11:45 | disposition home or self-care (01) | DRG 470 ==
LOC: OPSVCIP 05:41 → 4 SOUTHEST 10:55
PROVIDERS: ADMIT Orthopaedic Surgery; ATTEND Orthopaedic Surgery
PROC: 0SRC0J9 Replacement of Right Knee Joint with Synthetic Substitute, Cemented, Open Approach (ICD-10-PCS; principal; 2017-03-10 07:10)
DX: M17.11 Unilateral primary osteoarthritis, right knee (principal); E03.9 Hypothyroidism, unspecified; E78.5 Hyperlipidemia, unspecified; I10 Essential (primary) hypertension; J45.909 Unspecified asthma, uncomplicated; K21.9 Gastro-esophageal reflux disease without esophagitis; K59.00 Constipation, unspecified; Z96.649 Presence of unspecified artificial hip joint; Z96.652 Presence of left artificial knee joint; Z90.710 Acquired absence of both cervix and uterus; Z98.49 Cataract extraction status, unspecified eye; Z82.3 Family history of stroke; Z83.3 Family history of diabetes mellitus; Z80.9 Family history of malignant neoplasm, unspecified; Z82.49 Family history of ischemic heart disease and other diseases of the circulatory system; Z87.891 Personal history of nicotine dependence; Z88.5 Allergy status to narcotic agent; Z88.8 Allergy status to other drugs, medicaments and biological substances; Z88.1 Allergy status to other antibiotic agents
CPT/HCPCS: 36415; 73560; 85014; 85018; 85027; 86850; 86900; 86901; 88305; 88311; 94250; 94640; 94760; J0171; J0330; J0690; J0780; J1100; J1885; J2270; J2370; J2405; J2704; J2710; J2795; J3010; J3260; J3370; J3490; J7030; J7120; J8597; S0028; 97116; 97150; 97530; 97535; C1769

== ENCOUNTER 2017-03-26 08:53 | Emergency (ER) | payer BC, MEDICARE ==
[~2017-03-26] VITALS: Ht 172.7 cm; Wt 104.3 kg
[2017-03-26 08:53] VITALS: BP 116/59
[~2017-03-26 08:53] MED LIST changes: -LIDOCAINE 1% 1 ML SYRINGE. ID PRN; -MEPERIDINE PF 25 MG/ML VIAL. IV PRN; -MIDAZOLAM HCL/PF 2 MG/2 ML VIAL. IV PRN; +OXYC-328 PO; -PROCHLORPERAZINE 10 MG/2 ML VIAL. IV PRN; +TRAM50TA PO; -diphenhydrAMINE 50 MG/ML VIAL IV PRN; -fentaNYL PF VIAL 100 MCG/2 ML VIAL IV PRN
--- NOTE | 2017-03-26 09:29 | PHYS DOC ---
Past Medical History Past Medical History: No Pertinent History Past Surgical History: Hysterectomy, Tubal ligation, Other Additional Past Surgical Histo: BILAT KNEE REPL, CATARACTS, PARATHYROIDECTOMY, THYROIDECTOMY Alcohol Use: None Drug Use: None Adult General Chief Complaint Chief Complaint: MECHANICAL FALL HPI HPI 71-year-old female presenting to the emergency department status post right knee replacement surgery [address] Hernandes is her orthopedic surgeon. She rolled out of bed this morning and had difficulty time getting up. Paramedics were called. Patient was unable to walk so she was brought here for further evaluation. Onset today. Location legs. Duration intermittent. No alleviating or exacerbating factors. ROS: Negative for chest pain shortness of breath numbness weakness or tingling. Negative for fevers or chills. She denies polyuria dysuria or cough. All other review of systems is negative unless otherwise noted in history of present illness. ED course: 71-year-old female presenting to the emergency department with difficulty with ambulation after a fall. Pertinent physical examination findings : Reviewing the patient's vital signs she is afebrile though she does have a low -grade elevation in her temperature. Pertinent physical exam findings: The knee is normal to touch and temperature and postsurgical wound is clean dry and intact. Palpable pulse distally with normal neurovascular status. 2 second cap refill. nl strength in the lower extremities. The patient ambulated in the emergency department with a walker. She has an appointment with Dr. Hernandes. I discussed the case with him and he agreed to see her in clinic today. She was able to ambulate in the emergency department and was subsequently discharged. They were to return if their symptoms worsened or if they were concerned for any reason. [id number] discharge instructions and return precautions were given. Patient's questions were answered to their satisfaction. Patient is comfortable plan. Review of Systems Review of Systems SEE ABOVE. Allergies Allergies Allergies Coded Allergies Type Severity Reaction Last Updated Verified chlorhexidine Allergy Intermediate PRURITIS 03/11/17 Yes morphine Allergy Intermediate Itching/HIVES 03/10/17 Yes propoxyphene Allergy Intermediate Itching 03/10/17 Yes erythromycin base Adverse Reaction Intermediate Hives 03/10/17 Yes hydromorphone Adverse Reaction Intermediate Itching 03/10/17 Yes Physical Exam Physical Exam SEE ABOVE Constitutional: Well developed, well nourished, no acute distress, non-toxic appearance. [] HENT: Normocephalic, atraumatic, bilateral external ears normal, oropharynx moist, no oral exudates, nose normal. [] Eyes: PERRLA, EOMI, conjunctiva normal, no discharge. [] Neck: Normal range of motion, no tenderness, supple, no stridor. [] Cardiovascular:Heart rate regular rhythm, no murmur [] Lungs & Thorax: Bilateral breath sounds clear to auscultation [] Abdomen: Bowel sounds normal, soft, no tenderness, no masses, no pulsatile masses. [] Skin: Warm, dry, no erythema, no rash. [] Back: No tenderness, no CVA tenderness. [] Extremities: see above Neurologic: Alert and oriented X 3, normal motor function, normal sensory function, no focal deficits noted. [] Psychologic: Affect normal, judgement normal, mood normal. [] Current Patient Data Vital Signs Vital Signs Date Time Temp Pulse Resp B/P (MAP) Pulse Ox O2 Delivery O2 Flow Rate FiO2 03/26/17 08:53 100.1 103 18 116/59 (78) 93 Room Air 100.1 EKG EKG [] Radiology/Procedures Radiology/Procedures [] Course & Med Decision Making Course & Med Decision Making Pertinent Labs and Imaging studies reviewed. (See chart for details) [] Dragon Disclaimer Dragon Disclaimer This electronic medical record was generated, in whole or in part, using a voice recognition dictation system. Departure Departure Impression: Primary Impression: Fall Additional Impressions: Ambulatory dysfunction S/P knee surgery Disposition: 01 HOME, SELF-CARE Condition: STABLE Referrals: MEET STAFFORD MD (PCP) JENELLE RUTH MD Patient Instructions: Knee Rehabilitation, Guidelines Following Surgery Additional Instructions: Thank you for allowing us to participate in your care today. Followup with your ortho doctor today. Call your Primary Doctor tomorrow and inform them of your visit today. If you do not have a primary care provider you can ask for a list of our primary care providers. Return to the emergency department you have any new or concerning findings. This should be evaluated by the primary care physician and any necessary consulting services for continued management within a few days after discharge. Return to emergency room if you have any new or concerning symptoms including but not limited to fever, chills, nausea, vomiting, intractable pain, any new rashes, chest pain, shortness of air, uncontrolled bleeding, difficulty breathing, and/or vision loss. Problem Qualifiers SUBHASH BAILON MD Mar 26, 2017 09:29
--- NOTE | 2017-03-26 09:36 | RAD ---
Indication fall. Pain. AP oblique and lateral views of the right knee were obtained. No acute bony finding is seen. A total knee prosthesis is noted. There is a joint effusion.
== END 2017-03-26 10:05 | disposition home or self-care (01) ==
LOC: ER 08:53
DX: R26.2 Difficulty in walking, not elsewhere classified (principal); Z96.651 Presence of right artificial knee joint; Z90.710 Acquired absence of both cervix and uterus; Z98.51 Tubal ligation status; Z88.1 Allergy status to other antibiotic agents; Z88.5 Allergy status to narcotic agent; Z88.8 Allergy status to other drugs, medicaments and biological substances; W19.XXXA Unspecified fall, initial encounter; Y93.89 Activity, other specified; Y99.8 Other external cause status; Y92.89 Other specified places as the place of occurrence of the external cause
CPT/HCPCS: 73562; 99284

== ENCOUNTER → 2017-12-04 | Day surgery (SDC) | payer BC ==
[~2017-12-04] MED LIST changes: -ACET325T9 PO; -ASPI-482 PO; -ASPI325T11 PO; -B12/1TAB PO; -B6/F1TAB PO; -BISA-42 PO; -CELE100C PO; -CELE200C PO; -CETI10TA22 PO; -CHOL200024 PO; -CICL34.6 TP; -DIPH50CA PO; -DOCU-109 PO; -ESZO3TAB28 PO; -FEBU80TA2 PO; -FERR159T3 PO; -FERR325T58 PO; -FLUT1DIS3 IH; -FURO-68 PO; -FURO80TA72 PO; -GARL10002 PO; -GINK120C PO; -GLUC1TAB26 PO; -HYDR200T PO; -LEVO175T5 PO; +LIDOCAINE 2% 100 MG/5 ML SYRINGE.; -LOSA100T6 PO; -MELA10TA PO; -METO10TA81 PO; -MULT-208 PO; -OMEG500C3 PO; -OXYC-328 PO; -PANT40GR PO; -POTA20PA PO; +PROPOFOL 40 ML IV; -PSYL660P18 PO; -SIMV20TA3 PO; -TRAM50TA PO; -TRIA1TAB2 PO; -UBID100C40 PO; -VENTOLIN HFA18 GM INH
[2017-12-04] MEDS: IV RINGERS,LACTATED 1000ML 1,000 ML IV (07:17)
== END ==
LOC: SURG 06:12
DX: K21.0 Gastro-esophageal reflux disease with esophagitis (principal); K29.50 Unspecified chronic gastritis without bleeding; K44.9 Diaphragmatic hernia without obstruction or gangrene; K25.4 Chronic or unspecified gastric ulcer with hemorrhage; K57.30 Diverticulosis of large intestine without perforation or abscess without bleeding; K64.8 Other hemorrhoids; E03.9 Hypothyroidism, unspecified; E78.5 Hyperlipidemia, unspecified; I10 Essential (primary) hypertension; J44.9 Chronic obstructive pulmonary disease, unspecified; M19.90 Unspecified osteoarthritis, unspecified site; D89.89 Other specified disorders involving the immune mechanism, not elsewhere classified; E78.00 Pure hypercholesterolemia, unspecified; J45.909 Unspecified asthma, uncomplicated; J18.9 Pneumonia, unspecified organism; K58.8 Other irritable bowel syndrome; E66.9 Obesity, unspecified; M10.9 Gout, unspecified; F41.9 Anxiety disorder, unspecified; Z79.82 Long term (current) use of aspirin; Z86.010 Personal history of colon polyps; Z87.891 Personal history of nicotine dependence; Z82.49 Family history of ischemic heart disease and other diseases of the circulatory system; Z79.899 Other long term (current) drug therapy; Z98.890 Other specified postprocedural states; Z79.01 Long term (current) use of anticoagulants; Z86.718 Personal history of other venous thrombosis and embolism; Z90.710 Acquired absence of both cervix and uterus; Z96.643 Presence of artificial hip joint, bilateral; Z87.81 Personal history of (healed) traumatic fracture; Z88.8 Allergy status to other drugs, medicaments and biological substances; Z88.1 Allergy status to other antibiotic agents; Z88.5 Allergy status to narcotic agent
CPT/HCPCS: 43239; 88305; 88342; J2704

== ENCOUNTER 2018-02-05 05:52 | Day surgery (SDC) | payer BC ==
[2018-02-05] MEDS: IV RINGERS,LACTATED 1000ML 1,000 ML IV (06:25)
[2018-02-05] MEDS ORDERED: LIDOCAINE 2% PF Vial for OR 5 ML VIAL. (06:51)
[2018-02-05] MEDS ORDERED: PROPOFOL 20 ML IV (06:51)
[2018-02-05] MEDS ORDERED: LIDOCAINE 1% PF 2 ML VIAL. ID (07:00)
[2018-02-05] MEDS ORDERED: fentaNYL PF VIAL 100 MCG/2 ML VIAL IV ×2 (07:00)
[2018-02-05] MEDS ORDERED: ONDANSETRON PF 4 MG/2 ML VIAL. IV (07:00)
== END 2018-02-05 08:10 | disposition home or self-care (01) ==
LOC: ENDOS 05:52
DX: K44.9 Diaphragmatic hernia without obstruction or gangrene (principal); K29.50 Unspecified chronic gastritis without bleeding; I10 Essential (primary) hypertension; J45.909 Unspecified asthma, uncomplicated; E78.00 Pure hypercholesterolemia, unspecified; M19.90 Unspecified osteoarthritis, unspecified site; Z86.010 Personal history of colon polyps; Z88.1 Allergy status to other antibiotic agents; Z88.5 Allergy status to narcotic agent; Z79.82 Long term (current) use of aspirin; Z79.899 Other long term (current) drug therapy; Z83.3 Family history of diabetes mellitus; Z82.3 Family history of stroke; Z87.891 Personal history of nicotine dependence; Z87.11 Personal history of peptic ulcer disease; Z98.42 Cataract extraction status, left eye; Z98.41 Cataract extraction status, right eye; Z86.718 Personal history of other venous thrombosis and embolism; Z86.711 Personal history of pulmonary embolism; Z87.01 Personal history of pneumonia (recurrent); E66.9 Obesity, unspecified; K21.9 Gastro-esophageal reflux disease without esophagitis; Z90.710 Acquired absence of both cervix and uterus; Z98.51 Tubal ligation status; Z98.890 Other specified postprocedural states; M1A.9XX0 Chronic gout, unspecified, without tophus (tophi); E89.0 Postprocedural hypothyroidism; F41.9 Anxiety disorder, unspecified; Z82.49 Family history of ischemic heart disease and other diseases of the circulatory system
CPT/HCPCS: 43235; J2704

== ENCOUNTER 2018-06-21 06:06 | Inpatient (IN) | payer BC ==
[2018-06-21] VITALS (11 sets, daily range): BP systolic 113–137; BP diastolic 58–76
[~2018-06-21] VITALS: Ht 172.7 cm; Wt 110.7 kg
[~2018-06-21 06:06] MED LIST changes: +ACET325T9 PO; +ASPI-482 PO; +ASPI-630 PO; +ASPI325T11 PO; +B12/1TAB PO; +B6/F1TAB PO; +BIOT25006 PO; +BISA-42 PO; +CELE100C PO; +CELE200C PO; +CETI10TA22 PO; +CHOL200024 PO; +CICL34.6 TP; +DIPH50CA PO; +DOCU-109 PO; +ESZO3TAB28 PO; +FEBU80TA2 PO; +FERR159T3 PO; +FERR325T58 PO; +FLUT1DIS3 IH; +FLUT1DIS5 IH; +FURO-68 PO; +FURO80TA72 PO; +GARL10002 PO; +GINK120C PO; +GLUC1TAB26 PO; +HYDR200T71 PO; +LEVO175T5 PO; -LIDOCAINE 2% 100 MG/5 ML SYRINGE.; +LOSA100T7 PO; +MELA10TA PO; +METO10TA81 PO; +MONT10TA9 PO; +MULT-208 PO; +OMEG1CAP6 PO; +OMEG500C3 PO; +OXYC-328 PO; +PANT40GR PO; +POLY17PO29 PO; +POTA20PA30 PO; -PROPOFOL 40 ML IV; +PSYL660P18 PO; +SIMV20TA3 PO; +TRAM50TA PO; +TRIA15CR3 TP; +TRIA1TAB2 PO; +UBID100C40 PO; +VENTOLIN HFA18 GM INH
[2018-06-21] MEDS ORDERED: SURGICEL HEMOSTAT 4X8 EACH. ONE ×2 (06:12→06:13)
[2018-06-21] MEDS ORDERED: BUPIVAC MPF-EPI 0.5%-1:200000 30 ML VIAL. ONE (06:13)
[2018-06-21] MEDS ORDERED: ONDANSETRON PF 4 MG/2 ML VIAL. IV PRN ×2 (07:00→11:45)
[2018-06-21] MEDS ORDERED: PROCHLORPERAZINE 10 MG/2 ML VIAL. IV PRN ×2 (07:00→16:45)
[2018-06-21] MEDS ORDERED: fentaNYL PF VIAL 100 MCG/2 ML VIAL IV PRN ×2 (07:00)
[2018-06-21] MEDS ORDERED: LIDOCAINE 1% PF 2 ML VIAL. ID PRN (07:00)
[2018-06-21] MEDS ORDERED: IV RINGERS,LACTATED 1000ML 1,000 ML IV SCH (07:00)
[2018-06-21] MEDS ORDERED: PROPOFOL 20 ML IV ONE (07:11)
[2018-06-21] MEDS ORDERED: DEXAMETHASONE SOD PHOS 20 MG/5 ML VIAL. ONE (07:11)
[2018-06-21] MEDS ORDERED: FAMOTIDINE 20 MG/2 ML VIAL ONE (07:11)
[2018-06-21] MEDS ORDERED: ONDANSETRON PF 4 MG/2 ML VIAL. ONE (07:11)
[2018-06-21] MEDS ORDERED: ROCURONIUM 50 MG/5 ML VIAL. ONE (07:12)
[2018-06-21] MEDS ORDERED: fentaNYL PF VIAL 100 MCG/2 ML VIAL ONE ×2 (07:12→08:44)
[2018-06-21] MEDS ORDERED: SUCCINYLCHOLINE 200 MG/10 ML VIAL. ONE (07:12)
[2018-06-21] MEDS ORDERED: MIDAZOLAM HCL/PF 2 MG/2 ML VIAL. ONE (07:12)
[2018-06-21] MEDS ORDERED: LIDOCAINE 2% TOPICAL JELLY 5GM TUBE. TP ONE (07:53)
[2018-06-21] MEDS ORDERED: ePHEDrine PF IN SALINE 50 MG/5 ML DISP.SYRIN IV ONE (08:05)
[2018-06-21] MEDS ORDERED: VASOPRESSIN 20 UNIT/ML VIAL. ONE (08:09)
[2018-06-21] MEDS ORDERED: GLYCOPYRROLATE 1 MG/5 ML VIAL. ONE (08:28)
[2018-06-21] MEDS ORDERED: SEVOFLURANE > 120 MINUTES. IH ONE (09:57)
[2018-06-21] MEDS ORDERED: NEOSTIGMINE METHYLSULFATE 5 MG/5 ML SYRINGE. ONE (11:01)
--- NOTE | 2018-06-21 11:44 | PDOC4 ---
Operative Note Operative Note Operative Note Preoperative Diagnosis: Large hiatal hernia with gastroesophageal reflux disease Postoperative Diagnosis: Same Procedure: Laparoscopic repair of large hiatal hernia with Phasix ST mesh, Tomas fundoplication Surgeon: Masoud Ku.: Dr. Serrano Anesthesia: Gen. Estimated Blood Loss: 20 mL Specimen: Hernia sac to pathology Drains: None Complications: None Indications: The patient is a 72 year old female who is referred following the GI evaluation for lower chest discomfort and shortness of breath. Evaluation identified a large hiatal hernia and she was referred for surgical repair. The risks of surgery were discussed which include bleeding, infection, recurrent herniation, gastric or esophageal perforation, visceral injury, recurrent reflux , gas bloat syndrome, dysphasia, potential need for additional surgeries or procedures. She understands and would like to proceed. Description: The patient was taken to the operating room and placed supine on the operating table. General anesthesia was performed. The patient was then placed in lithotomy. The abdomen was prepped with DuraPrep and draped in a standard surgical fashion. A small incision was made superior to and to the patient's left of the umbilicus through which a visualized 5 mm trocar was inserted. A pneumoperitoneum was then created and the laparoscope was introduced. In the right lateral abdomen a 12 mm trocar was inserted through which a soft fan retractor was used to elevate the left lobe of the liver. In the right upper quadrant a 5 mm trocar was inserted. In the left upper quadrant an 11 mm trocar was inserted while in the left lateral abdomen a 5 mm trocar was inserted. Attention was then directed to the diaphragmatic hiatus. As expected there was a very large hiatal hernia defect with virtually much of the stomach present in the chest. A large amount of stomach and omentum was pulled out of the chest and able to be reduced. We then began mobilizing the entire hernia sac within the mediastinum. We started this on the right side and began freeing up the sac from the right myla. The Harmonic scalpel assisted for much of this dissection. We continued mobilizing the sac superiorly well into the mediastinum. We continued this dissection anteriorly freeing up the sac and its attachments in this location. The dissection then continued along the left myla and the sac and attachments were mobilized here as well. Due to the large size and redundancy of the sac considerable time was required in freeing this out of the mediastinum. Portions of the redundant sac were also fully excised and sent off to pathology as a specimen. The gastrocolic omentum was then opened with the Harmonic scalpel in the upper portion of the greater curvature. We then freed up the upper part of the greater curvature and fundus using the harmonic scalpel. Large blood vessels were doubly clipped and divided. The dissection continued all the way back up to the left myla and any remaining splenic attachments were also mobilized. At this point the esophagus was readily visualized and we were able to free up the area around his gastroesophageal junction. A Leandro drain was then placed around the esophagus at the GE junction and clips were applied holding the [place] in place. With retraction on the [place] we were able to continue freeing up any remaining sac attachments particularly in the posterior location. At this point the GE junction was well within the abdominal cavity. The left and right myla were then reapproximated with interrupted 2-0 silk sutures using the Endo Stitch device. Stitches were applied both anteriorly and posteriorly allowing for closure of the hernia defect. We elected to reinforce the closure with a Phasix ST mesh patch. The mesh was tailored to fit the space and a slit was made to accommodate the esophagus. The mesh was then introduced and laid up against the diaphragm and around the esophagus. Initial fixation sutures were placed at the superior corners of the mesh using 2 -0 silk. The entire mesh was then fixed to the diaphragm using the Tisseel fibrin glue. The fundus was then wrapped around in a 360 fashion creating the fundoplication. A shoeshine maneuver was used to ensure no twists or kinks. An initial 2-0 Ethibond suture was used securing the fundic lips together. Another suture was placed superior to this which incorporated a small bite of the anterior esophagus. An additional suture was then placed inferiorly completing the fundoplication. At this point hemostasis was good, the hernia was well repaired with good coverage from the mesh, and the fundoplication was intact with a nice orientation. The 11 and 12 mm trochars were then removed and the fascia closed with 0 Vicryl using an Endo Close. The remaining ports were removed and the pneumoperitoneum was relieved. Skin at all incisions was closed with 4-0 Monocryl. Steri-Strips and dressings were applied. The patient tolerated the procedure well. CHIRAG BELTRAN MD Jun 21, 2018 11:44
[2018-06-21] MEDS ORDERED: 0.9 % SODIUM CHLORIDE 10 ML DISP.SYRIN. IV PRN (11:45)
[2018-06-21] MEDS: POTASSIUM CHLORIDE 20 MEQ TABLET.ER. PO SCH (13:00)
[2018-06-21] MEDS ORDERED: PROCHLORPERAZINE 10 MG/2 ML VIAL. ONE (13:01)
[2018-06-21] MEDS: IV 1/2 NORMAL SALINE 1,000 ML IV SCH (15:00)
[2018-06-21] MEDS: FUROSEMIDE 80 MG TABLET. PO SCH (16:00)
[2018-06-21] MEDS: ALBUTEROL SULFATE 2.5 MG/3 ML NEBU. NEB SCH ×2 (17:06→19:14)
[2018-06-21] MEDS: KETOROLAC 15 MG/ML VIAL. IV PRN (17:41)
[2018-06-21] MEDS ORDERED: NON FORMULARY ITEM (Melatonin 10 MG) PO SCH (21:00)
[2018-06-21] MEDS: ZOLPIDEM 5 MG TABLET. PO SCH (22:00)
[2018-06-21] MEDS: SIMVASTATIN 20 MG TABLET PO SCH (22:00)
[2018-06-21] MEDS: HYDROXYCHLOROQUINE 200 MG TABLET PO SCH (22:00)
[2018-06-22] MEDS: KETOROLAC 15 MG/ML VIAL. IV PRN ×4 (00:03→17:01)
[2018-06-22] MEDS: IV 1/2 NORMAL SALINE 1,000 ML IV SCH ×2 (02:46→14:32)
[2018-06-22 03:00] VITALS: BP 96/47
[2018-06-22] MEDS: LEVOTHYROXINE 175 MCG TABLET PO SCH (05:41)
[2018-06-22] MEDS: POTASSIUM CHLORIDE 20 MEQ TABLET.ER. PO SCH ×2 (05:41→12:19)
[2018-06-22] MEDS: ALBUTEROL SULFATE 2.5 MG/3 ML NEBU. NEB SCH ×4 (06:56→20:18)
[2018-06-22 07:00] VITALS: BP 113/59
[2018-06-22] MEDS ORDERED: HYDROcodon/APAP 7.5/325MG ORAL 15 ML SOLUTION PO PRN (07:00)
--- NOTE | 2018-06-22 07:13 | PDOC ---
PROGRESS NOTES Subjective Subjective better today, no dysphagia; some O2 desat overnight, on NC Objective Objective Vital Signs Date Time Temp Pulse Resp B/P (MAP) Pulse Ox O2 Delivery O2 Flow Rate FiO2 06/22/18 06:58 92 Room Air 06/22/18 04:00 22 2.0 06/22/18 03:00 97.9 95 96/47 (63) 97.9 Intake and Output 06/22/18 07:00 Intake Total 1650.0 ml Output Total 500 ml Balance 1150.0 ml Intake Oral 240 ml IV Total 1410.0 ml Output Urine Total 500 ml Stool Total 0 ml # Voids 2 Physical Exam Abdomen: Soft, No tenderness Assessment Assessment POD 1 lap HH repair Plan Plan of Care start liquids, convert to PO pain meds; ambulate, monitor O2, supplement as needed Comment Review of Relevant I have reviewed the following items cm (where applicable) has been applied. Medications Current Medications Prochlorperazine Edisylate (Compazine) 5 mg PACU PRN PRN IV NAUSEA, MRX1; Start 06/21/18 at 07:00; Stop 06/21/18 at 15:00; Status DC Lidocaine HCl (Xylocaine-Mpf 1% 2ml Vial) 2 ml PRN 1X PRN ID PRIOR TO IV START ; Start 06/21/18 at 07:00; Stop 06/21/18 at 15:00; Status DC Ringer's Solution 1,000 ml @ 30 mls/hr Q24H IV Last administered on 06/21/18at 07:06; Start 06/21/18 at 07:00; Stop 06/21/18 at 16:35; Status DC Fentanyl Citrate (Fentanyl 2ml Vial) 50 mcg PRN Q5MIN PRN IV MODERATE TO SEVERE PAIN; Start 06/21/18 at 07:00; Stop 06/21/18 at 15:00; Status DC Fentanyl Citrate (Fentanyl 2ml Vial) 25 mcg PRN Q5MIN PRN IV MILD PAIN; Start 06/21/18 at 07:00; Stop 06/21/18 at 15:00; Status DC Ondansetron HCl (Zofran) 4 mg PRN Q6HRS PRN IV NAUSEA/VOMITING Last administered on 06/21/18at 13:08; Start 06/21/18 at 07:00; Stop 06/21/18 at 15:00 ; Status DC Cefazolin Sodium/ Dextrose 50 ml @ 100 mls/hr 1X PREOP PRN IV PRIOR TO PROCEDURE Last administered on 06/21/18at 07:54; Start 06/21/18 at 06:00; Stop 06/21/18 at 16:35; Status DC Ondansetron HCl (Zofran) 4 mg STK-MED ONCE .ROUTE ; Start 06/21/18 at 07:11; Stop 06/21/18 at 16:36; Status DC Famotidine (Pepcid Vial) 20 mg STK-MED ONCE .ROUTE ; Start 06/21/18 at 07:11; Stop 06/21/18 at 16:36; Status DC Dexamethasone Sodium Phosphate (Decadron) 20 mg STK-MED ONCE .ROUTE ; Start 06/21/18 at 07:11; Stop 06/21/18 at 16:36; Status DC Propofol 20 ml @ As Directed STK-MED ONCE IV ; Start 06/21/18 at 07:11; Stop at 16:35; Status DC Midazolam HCl (Versed) 2 mg STK-MED ONCE .ROUTE ; Start 06/21/18 at 07:12; Stop 06/21/18 at 16:36; Status DC Fentanyl Citrate (Fentanyl 2ml Vial) 100 mcg STK-MED ONCE .ROUTE ; Start at 07:12; Stop 06/21/18 at 16:36; Status DC Succinylcholine Chloride (Anectine) 200 mg STK-MED ONCE .ROUTE ; Start 06/21/18 at 07:12; Stop 06/21/18 at 16:36; Status DC Rocuronium [place] (Zemuron) 50 mg STK-MED ONCE .ROUTE ; Start 06/21/18 at 07:12 ; Stop 06/21/18 at 16:36; Status DC Cellulose (Surgicel Hemostat 4x8) 1 each STK-MED ONCE .ROUTE ; Start 06/21/18 at 06:12; Stop 06/21/18 at 16:36; Status DC Bupivacaine HCl/ Epinephrine Bitart (Sensorcain-Mpf Epi 0.5%-1:240858) 30 ml STK -MED ONCE .ROUTE Last administered on 06/21/18at 08:32; Start 06/21/18 at 06:13 ; Stop 06/21/18 at 16:36; Status DC Cellulose (Surgicel Hemostat 4x8) 1 each STK-MED ONCE .ROUTE ; Start 06/21/18 at 06:13; Stop 06/21/18 at 16:36; Status DC Lidocaine HCl (Xylocaine 2% Topical 5gm Tube) 5 isacc STK-MED ONCE TP ; Start 06/21/18 at 07:53; Stop 06/21/18 at 16:36; Status DC Ephedrine Sulfate (ePHEDrine PF IN SALINE SYRINGE) 50 mg STK-MED ONCE IV ; Start 06/21/18 at 08:05; Stop 06/21/18 at 16:36; Status DC Vasopressin (Vasostrict) 20 unit STK-MED ONCE .ROUTE ; Start 06/21/18 at 08:09; Stop 06/21/18 at 08:11; Status DC Glycopyrrolate (Robinul) 1 mg STK-MED ONCE .ROUTE ; Start 06/21/18 at 08:28; Stop 06/21/18 at 16:36; Status DC Fentanyl Citrate (Fentanyl 2ml Vial) 100 mcg STK-MED ONCE .ROUTE ; Start at 08:44; Stop 06/21/18 at 16:36; Status DC Sevoflurane (Ultane) 90 ml STK-MED ONCE IH ; Start 06/21/18 at 09:57; Stop 06/21 at 16:36; Status DC Neostigmine Methylsulfate (Neostigmine Methylsulfate) 5 mg STK-MED ONCE .ROUTE ; Start 06/21/18 at 11:01; Stop 06/21/18 at 16:36; Status DC Sodium Chloride (Normal Saline Flush) 3 ml QSHIFT PRN IV AFTER MEDS AND BLOOD DRAWS; Start 06/21/18 at 11:45 Sodium Chloride 1,000 ml @ 85 mls/hr [id number] IV Last administered on at 02:46; Start 06/21/18 at 15:00 Fentanyl Citrate 30 ml @ 0 mls/hr CONT PRN PRN IV PER PROTOCOL Last administered on 06/22/18at 06:34; Start 06/21/18 at 12:00 Ondansetron HCl (Zofran) 4 mg PRN Q6HRS PRN IV NAUESA, 1ST CHOICE; Start at 11:45 Furosemide (Lasix) 40 mg DAILY PO ; Start 06/22/18 at 09:00 Furosemide (Lasix) 80 mg DAILY16 PO ; Start 06/21/18 at 16:00 Levothyroxine Sodium (Synthroid) 175 mcg DAILY06 PO Last administered on at 05:41; Start 06/22/18 at 06:00 Albuterol Sulfate (Ventolin Neb Soln) 2.5 mg RTQID NEB Last administered on 06/22/18at 06:56; Start 06/21/18 at 16:00 Zolpidem Tartrate (Ambien) 5 mg QHS PO Last administered on 06/21/18at 22:00; Start 06/21/18 at 21:00 Hydroxychloroquine Sulfate (Plaquenil) 200 mg BID PO Last administered on at 22:00; Start 06/21/18 at 21:00 Losartan Potassium (Cozaar) 100 mg DAILY PO ; Start 06/22/18 at 09:00 Non-Formulary Medication (Melatonin ) 10 mg HS PO ; Start 06/21/18 at 21:00; Status UNV Potassium Chloride (Klor-Con) 20 meq DAILY05 PO Last administered on 06/22/18at 05:41; Start 06/22/18 at 05:00 Potassium Chloride (Klor-Con) 40 meq AFTRNOON PO ; Start 06/21/18 at 13:00 Simvastatin (Zocor) 20 mg HS PO Last administered on 06/21/18at 22:00; Start at 21:00 Prochlorperazine Edisylate (Compazine) 10 mg STK-MED ONCE .ROUTE ; Start at 13:01; Stop 06/21/18 at 16:36; Status DC Prochlorperazine Edisylate (Compazine) 10 mg PRN Q6HRS PRN IV NAUSEA/VOMITING Last administered on 06/21/18at 16:55; Start 06/21/18 at 16:45 Ketorolac Tromethamine (Toradol 15mg Vial) 15 mg PRN Q6HRS PRN IV PAIN Last administered on 06/22/18at 05:41; Start 06/21/18 at 17:15; Stop 06/26/18 at 17:14 Acetaminophen/ Hydrocodone Bitart (Lortab 7.5-325/ 15ml Oral Solution) 15 ml PRN Q4HRS PRN PO PAIN; Start 06/22/18 at 07:00; Stop 06/22/18 at 07:10; Status DC Active Scripts Active Reported Triamcinolone Acetonide 0.1% Cream (Triamcinolone Acetonide) 15 Gm Cream..g. 1 Isacc TP DAILY PRN Biotin 2,500 Mcg Capsule 10,000 Mcg PO DAILY Fish Oil 1,000 Mg Capsule ([place]-3 Fatty Acids/Fish Oil) 1 Each Capsule 2 Each PO BID Miralax (Polyethylene Glycol 3350) 17 Gm Powd.pack 1 Packet PO QODAY Reglan (Metoclopramide Hcl) 10 Mg Tablet 1 Tab PO QID Tylenol (Acetaminophen) 325 Mg Tablet 1,000 Mg PO QID Tramadol Hcl 50 Mg Tablet 300 Mg PO DAILY PRN Uloric (Febuxostat) 80 Mg Tablet 1 Tab PO DAILY Aspirin 81 Mg Tab.chew 1 Tab PO DAILY Zyrtec (Cetirizine Hcl) 10 Mg Tablet 10 Mg PO DAILY LAST DOSE LAST NIGHT NEXT DOSE TONIGHT Melatonin 10 Mg Tablet 10 Mg PO HS Meds not given this hospital admission. May resume home medications as approved by Physician. Diphenhydramine Hcl 50 Mg Capsule 50 Mg PO HS Meds not given this hospital admission. May resume home medications as approved by Physician. Simvastatin 20 Mg Tablet 1 Tab PO QHS last dose last night next dose tonight Plaquenil (Hydroxychloroquine Sulfate) 200 Mg Tablet 200 Mg PO BID last dose this am next dose tonight Levothyroxine Sodium 175 Mcg Tablet 1 Tab PO DAILY last dose this am next dose tomorrow am Lasix (Furosemide) 80 Mg Tablet 1 Tab PO DAILY16 last dose yesterday next dose is due when home Lasix (Furosemide) 40 Mg Tablet 1 Tab PO DAILY last dose this am next dose tomorrow am Ventolin Hfa Inhaler (Albuterol Sulfate) 18 Gm Hfa.aer.ad 2 Puff INH QID not used in hospital may resume when needed Lunesta (Eszopiclone) 3 Mg Tablet 1 Tab PO QHS Meds not given this hospital admission. May resume home medications as approved by Physician. Losartan Potassium 100 Mg Tablet 100 Mg PO DAILY last dose this am next dose tomorrow am Co Q-10 (Ubidecarenone) 100 Mg Capsule 100 Mg PO not given in hospital may reusme when available Foltx Tablet (B12/Levomefolate Calcium/B-6) 1 Each Tablet 1 Each PO HS not given in the hospital may resume when available Protonix (Pantoprazole Sodium) 40 Mg Granpkt.dr 40 Mg PO DAILY last dose yesterday next dose is at 0900 D3 Dots (Cholecalciferol (Vitamin D3)) 2,000 Unit Tablet 2,000 Unit PO LAST DOSE THIS AM NEXT DOSE TOMORROW AM Klor-Con (Potassium Chloride) 20 Meq Packet 40 Meq PO AFTRNOON last dos yesterday afternoon next dose this afternoon at 1600 Klor-Con (Potassium Chloride) 20 Meq Packet 20 Meq PO DAILY05 last dose this am next dose tomorrow am Garlic 1,000 Mg Capsule 1,000 Mg PO not given in hospital may resume when available Multi-Day Vitamins (Multivitamin) 1 Each Tablet 1 Tab PO DAILY Vitals/I & O Vital Sign - Last 24 Hours 06/21/18 06/21/18 06/21/18 06/21/18 11:35 11:50 12:05 12:20 Temp 98.2 98.1 98.2 98.1 Pulse 101 102 97 90 Resp 21 16 16 20 B/P (MAP) 133/67 149/67 109/61 132/65 Pulse Ox 94 94 94 100 O2 Delivery Simple Mask Room Air Nasal Cannula Nasal Cannula O2 Flow Rate 10 3 4 06/21/18 06/21/18 06/21/18 06/21/18 12:35 12:54 12:55 13:08 Temp 98.1 98.1 98.1 98.1 Pulse 88 90 91 Resp 16 16 16 B/P (MAP) 121/49 128/67 (87) 129/63 (85) Pulse Ox 97 93 93 O2 Delivery Nasal Cannula Nasal Cannula Nasal Cannula Nasal Cannula O2 Flow Rate 2 2.0 2.0 2.0 06/21/18 06/21/18 06/21/18 06/21/18 13:11 13:23 13:30 13:39 Pulse 91 92 Resp 16 16 B/P (MAP) 137/76 (96) 113/63 (80) Pulse Ox 97 93 97 94 O2 Delivery Nasal Cannula Nasal Cannula Nasal Cannula Nasal Cannula O2 Flow Rate 2.0 2.0 2.0 2.0 06/21/18 06/21/18 06/21/18 06/21/18 13:54 14:23 14:53 15:53 Pulse 90 91 85 98 Resp 16 16 16 16 B/P (MAP) 123/64 (83) 124/66 (85) 132/66 (88) 129/73 (91) Pulse Ox 96 92 91 92 O2 Delivery Nasal Cannula Nasal Cannula Nasal Cannula Nasal Cannula O2 Flow Rate 2.0 2.0 2.0 2.0 06/21/18 06/21/18 06/21/18 06/21/18 16:53 17:08 19:00 19:16 Temp 98.6 98.6 Pulse 94 99 Resp 16 16 B/P (MAP) 124/73 (90) 119/58 (78) Pulse Ox 96 93 100 94 O2 Delivery Nasal Cannula Nasal Cannula O2 Flow Rate 2.0 2.0 2.0 2.0 06/21/18 06/21/18 06/22/18 06/22/18 19:34 23:00 03:00 04:00 Temp 97.9 97.9 97.9 97.9 Pulse 98 95 Resp 16 16 22 B/P (MAP) 127/64 (85) 96/47 (63) Pulse Ox 100 100 100 O2 Delivery Nasal Cannula Nasal Cannula O2 Flow Rate 2.0 2.0 2.0 2.0 06/22/18 06/22/18 06:34 06:58 Pulse Ox 92 O2 Delivery Room Air Room Air Intake and Output 06/21/18 06/21/18 06/22/18 15:00 23:00 07:00 Intake Total 804.5 ml 845.5 ml Output Total 500 ml 0 ml Balance -500 ml 804.5 ml 845.5 ml CHIRAG BELTRAN MD Jun 22, 2018 07:13
[2018-06-22] MEDS ORDERED: oxyCODONE/APAP 7.5/325 1 TAB TABLET PO PRN ×2 (07:15)
[2018-06-22] MEDS: HYDROXYCHLOROQUINE 200 MG TABLET PO SCH ×2 (08:00→22:25)
[2018-06-22] MEDS: FUROSEMIDE 40 MG TABLET. PO SCH (08:00)
[2018-06-22] MEDS: LOSARTAN POTASSIUM 50 MG TABLET. PO SCH (08:00)
[2018-06-22 11:00] VITALS: BP 129/69
[2018-06-22] MEDS ORDERED: oxyCODONE/APAP 10/325 1 TAB TABLET PO PRN (14:45)
[2018-06-22 15:00] VITALS: BP 115/56
[2018-06-22] MEDS: FUROSEMIDE 80 MG TABLET. PO SCH (17:00)
[2018-06-22] MEDS: oxyCODONE/APAP 10/325 1 TAB TABLET PO PRN ×2 (17:01→22:26)
--- NOTE | 2018-06-22 17:09 | PATHOLOGY ---
[facility] Accession Number: [id number] . 01 Material submitted: . HIATAL HERNIA SAC . 01 Clinical history: . Hiatal hernia repair . 02 Diagnosis: Segments of focal mesothelial-lined fibromembranous and fibroadipose tissue, laparoscopic hiatal hernia repair: - Hernia sac showing focal fibrosis, chronic inflammation, and recent hemorrhage. (JPM/db; 06/22/18) LBQ/06/22/2018 . 02 Electronically signed: . Ernesto Burton MD, Pathologist NPI- [id number] . 01 Gross description: . The specimen is received in formalin, labeled "Rosa Perdomo, hiatal hernia sac", are multiple irregular fragments of fibromembranous soft tissue measuring 8.4 x 5.0 x 1.5 cm in aggregate. No discrete nodules or masses are identified. Insurance Verification Rep tissue is submitted in A1-A2. ([facility]; 06/21/2018) SHS/SHS . 02 Pathologist provided ICD-10: K44.9 . 02 CPT . 070801 Specimen Comment: A courtesy copy of this report has been sent to Specimen Comment: [phone], . Specimen Comment: Report sent to and Performed at: 01 [facility] [address], [place], [place] [id number] MD Laurent Whitley MD Phone: [phone] Performed at: 02 [facility] [address], [place] [id number] MD Ernesto Burton MD Phone: [phone]
[2018-06-22 19:00] VITALS: BP 107/59
[2018-06-22] MEDS: SIMVASTATIN 20 MG TABLET PO SCH (22:24)
[2018-06-22] MEDS: ZOLPIDEM 5 MG TABLET. PO SCH (22:24)
[2018-06-22 23:00] VITALS: BP 149/86
[2018-06-23] MEDS: IV 1/2 NORMAL SALINE 1,000 ML IV SCH (02:18)
[2018-06-23 03:00] VITALS: BP 134/66
[2018-06-23] MEDS: KETOROLAC 15 MG/ML VIAL. IV PRN ×2 (04:54→12:13)
[2018-06-23] MEDS: LEVOTHYROXINE 175 MCG TABLET PO SCH (05:36)
[2018-06-23] MEDS: POTASSIUM CHLORIDE 20 MEQ TABLET.ER. PO SCH ×2 (05:36→12:13)
[2018-06-23 07:00] VITALS: BP 113/62
[2018-06-23] MEDS: ALBUTEROL SULFATE 2.5 MG/3 ML NEBU. NEB SCH ×2 (07:31→11:29)
[2018-06-23] MEDS: oxyCODONE/APAP 10/325 1 TAB TABLET PO PRN ×2 (07:57→15:29)
[2018-06-23] MEDS: FUROSEMIDE 40 MG TABLET. PO SCH (07:58)
[2018-06-23] MEDS: LOSARTAN POTASSIUM 50 MG TABLET. PO SCH (07:58)
[2018-06-23] MEDS: HYDROXYCHLOROQUINE 200 MG TABLET PO SCH (07:59)
[2018-06-23 11:00] VITALS: BP 105/50
--- NOTE | 2018-06-23 13:40 | PDOC ---
PROGRESS NOTES Subjective Subjective doing quite well, ready to go home Objective Objective Vital Signs Date Time Temp Pulse Resp B/P (MAP) Pulse Ox O2 Delivery O2 Flow Rate FiO2 06/23/18 11:30 Nasal Cannula 2.0 06/23/18 11:00 98.1 103 18 105/50 (68) 90 98.1 Intake and Output 06/23/18 07:00 # Voids 6 Physical Exam Abdomen: Soft, No tenderness Assessment Assessment Hiatal hernia Plan Plan of Care Discharge Comment Review of Relevant I have reviewed the following items cm (where applicable) has been applied. Medications Current Medications Prochlorperazine Edisylate (Compazine) 5 mg PACU PRN PRN IV NAUSEA, MRX1; Start 06/21/18 at 07:00; Stop 06/21/18 at 15:00; Status DC Lidocaine HCl (Xylocaine-Mpf 1% 2ml Vial) 2 ml PRN 1X PRN ID PRIOR TO IV START ; Start 06/21/18 at 07:00; Stop 06/21/18 at 15:00; Status DC Ringer's Solution 1,000 ml @ 30 mls/hr Q24H IV Last administered on 06/21/18at 07:06; Start 06/21/18 at 07:00; Stop 06/21/18 at 16:35; Status DC Fentanyl Citrate (Fentanyl 2ml Vial) 50 mcg PRN Q5MIN PRN IV MODERATE TO SEVERE PAIN; Start 06/21/18 at 07:00; Stop 06/21/18 at 15:00; Status DC Fentanyl Citrate (Fentanyl 2ml Vial) 25 mcg PRN Q5MIN PRN IV MILD PAIN; Start 06/21/18 at 07:00; Stop 06/21/18 at 15:00; Status DC Ondansetron HCl (Zofran) 4 mg PRN Q6HRS PRN IV NAUSEA/VOMITING Last administered on 06/21/18at 13:08; Start 06/21/18 at 07:00; Stop 06/21/18 at 15:00 ; Status DC Cefazolin Sodium/ Dextrose 50 ml @ 100 mls/hr 1X PREOP PRN IV PRIOR TO PROCEDURE Last administered on 06/21/18at 07:54; Start 06/21/18 at 06:00; Stop 06/21/18 at 16:35; Status DC Ondansetron HCl (Zofran) 4 mg STK-MED ONCE .ROUTE ; Start 06/21/18 at 07:11; Stop 06/21/18 at 16:36; Status DC Famotidine (Pepcid Vial) 20 mg STK-MED ONCE .ROUTE ; Start 06/21/18 at 07:11; Stop 06/21/18 at 16:36; Status DC Dexamethasone Sodium Phosphate (Decadron) 20 mg STK-MED ONCE .ROUTE ; Start 06/21/18 at 07:11; Stop 06/21/18 at 16:36; Status DC Propofol 20 ml @ As Directed STK-MED ONCE IV ; Start 06/21/18 at 07:11; Stop at 16:35; Status DC Midazolam HCl (Versed) 2 mg STK-MED ONCE .ROUTE ; Start 06/21/18 at 07:12; Stop 06/21/18 at 16:36; Status DC Fentanyl Citrate (Fentanyl 2ml Vial) 100 mcg STK-MED ONCE .ROUTE ; Start at 07:12; Stop 06/21/18 at 16:36; Status DC Succinylcholine Chloride (Anectine) 200 mg STK-MED ONCE .ROUTE ; Start 06/21/18 at 07:12; Stop 06/21/18 at 16:36; Status DC Rocuronium Sterrett (Zemuron) 50 mg STK-MED ONCE .ROUTE ; Start 06/21/18 at 07:12 ; Stop 06/21/18 at 16:36; Status DC Cellulose (Surgicel Hemostat 4x8) 1 each STK-MED ONCE .ROUTE ; Start 06/21/18 at 06:12; Stop 06/21/18 at 16:36; Status DC Bupivacaine HCl/ Epinephrine Bitart (Sensorcain-Mpf Epi 0.5%-[id number]) 30 ml STK -MED ONCE .ROUTE Last administered on 06/21/18at 08:32; Start 06/21/18 at 06:13 ; Stop 06/21/18 at 16:36; Status DC Cellulose (Surgicel Hemostat 4x8) 1 each STK-MED ONCE .ROUTE ; Start 06/21/18 at 06:13; Stop 06/21/18 at 16:36; Status DC Lidocaine HCl (Xylocaine 2% Topical 5gm Tube) 5 isacc STK-MED ONCE TP ; Start 06/21/18 at 07:53; Stop 06/21/18 at 16:36; Status DC Ephedrine Sulfate (ePHEDrine PF IN SALINE SYRINGE) 50 mg STK-MED ONCE IV ; Start 06/21/18 at 08:05; Stop 06/21/18 at 16:36; Status DC Vasopressin (Vasostrict) 20 unit STK-MED ONCE .ROUTE ; Start 06/21/18 at 08:09; Stop 06/21/18 at 08:11; Status DC Glycopyrrolate (Robinul) 1 mg STK-MED ONCE .ROUTE ; Start 06/21/18 at 08:28; Stop 06/21/18 at 16:36; Status DC Fentanyl Citrate (Fentanyl 2ml Vial) 100 mcg STK-MED ONCE .ROUTE ; Start at 08:44; Stop 06/21/18 at 16:36; Status DC Sevoflurane (Ultane) 90 ml STK-MED ONCE IH ; Start 06/21/18 at 09:57; Stop 06/21 at 16:36; Status DC Neostigmine Methylsulfate (Neostigmine Methylsulfate) 5 mg STK-MED ONCE .ROUTE ; Start 06/21/18 at 11:01; Stop 06/21/18 at 16:36; Status DC Sodium Chloride (Normal Saline Flush) 3 ml QSHIFT PRN IV AFTER MEDS AND BLOOD DRAWS; Start 06/21/18 at 11:45 Sodium Chloride 1,000 ml @ 85 mls/hr [id number] IV Last administered on at 02:46; Start 06/21/18 at 15:00; Stop 06/23/18 at 04:16; Status DC Fentanyl Citrate 30 ml @ 0 mls/hr CONT PRN PRN IV PER PROTOCOL Last administered on 06/22/18at 06:34; Start 06/21/18 at 12:00 Ondansetron HCl (Zofran) 4 mg PRN Q6HRS PRN IV NAUESA, 1ST CHOICE; Start at 11:45 Furosemide (Lasix) 40 mg DAILY PO Last administered on 06/23/18at 07:58; Start 06/22/18 at 09:00 Furosemide (Lasix) 80 mg DAILY16 PO Last administered on 06/22/18 17:00; Start 06/21/18 at 16:00 Levothyroxine Sodium (Synthroid) 175 mcg DAILY06 PO Last administered on 05:36; Start 06/22/18 at 06:00 Albuterol Sulfate (Ventolin Neb Soln) 2.5 mg RTQID NEB Last administered on 11:29; Start 06/21/18 at 16:00 Zolpidem Tartrate (Ambien) 5 mg QHS PO Last administered on 06/22/18 22:24; Start 06/21/18 at 21:00 Hydroxychloroquine Sulfate (Plaquenil) 200 mg BID PO Last administered on 07:59; Start 06/21/18 at 21:00 Losartan Potassium (Cozaar) 100 mg DAILY PO Last administered on 06/23/18 07: 58; Start 06/22/18 at 09:00 Non-Formulary Medication (Melatonin ) 10 mg HS PO ; Start 06/21/18 at 21:00; Status UNV Potassium Chloride (Klor-Con) 20 meq DAILY05 PO Last administered on 06/23/18 05:36; Start 06/22/18 at 05:00 Potassium Chloride (Klor-Con) 40 meq AFTRNOON PO Last administered on 12:13; Start 06/21/18 at 13:00 Simvastatin (Zocor) 20 mg HS PO Last administered on 06/22/18 22:24; Start at 21:00 Prochlorperazine Edisylate (Compazine) 10 mg STK-MED ONCE .ROUTE ; Start at 13:01; Stop 06/21/18 at 16:36; Status DC Prochlorperazine Edisylate (Compazine) 10 mg PRN Q6HRS PRN IV NAUSEA/VOMITING Last administered on 06/21/18at 16:55; Start 06/21/18 at 16:45 Ketorolac Tromethamine (Toradol 15mg Vial) 15 mg PRN Q6HRS PRN IV PAIN Last administered on 06/23/18 12:13; Start 06/21/18 at 17:15; Stop 06/26/18 at 17:14 Acetaminophen/ Hydrocodone Bitart (Lortab 7.5-325/ 15ml Oral Solution) 15 ml PRN Q4HRS PRN PO PAIN; Start 06/22/18 at 07:00; Stop 06/22/18 at 07:10; Status DC Oxycodone/ Acetaminophen (Percocet 7.5/ 325) 1 tab PRN Q4HRS PRN PO PAIN; Start 06/22/18 at 07:15; Stop 06/22/18 at 14:32; Status DC Oxycodone/ Acetaminophen (Percocet 7.5/ 325) 2 tab PRN Q4HRS PRN PO PAIN Last administered on 06/22/18at 12:20; Start 06/22/18 at 07:15; Stop 06/22/18 at 14:32 ; Status DC Oxycodone/ Acetaminophen (Percocet 10/325) 1 tab PRN Q4HRS PRN PO MODERATE PAIN ; Start 06/22/18 at 14:45 Oxycodone/ Acetaminophen (Percocet 10/325) 2 tab PRN Q4HRS PRN PO SEVERE PAIN Last administered on 06/23/18at 07:57; Start 06/22/18 at 14:45 Active Scripts Active Reported Triamcinolone Acetonide 0.1% Cream (Triamcinolone Acetonide) 15 Gm Cream..g. 1 Isacc TP DAILY PRN Biotin 2,500 Mcg Capsule 10,000 Mcg PO DAILY Fish Oil 1,000 Mg Capsule ([place]-3 Fatty Acids/Fish Oil) 1 Each Capsule 2 Each PO BID Miralax (Polyethylene Glycol 3350) 17 Gm Powd.pack 1 Packet PO QODAY Reglan (Metoclopramide Hcl) 10 Mg Tablet 1 Tab PO QID Tylenol (Acetaminophen) 325 Mg Tablet 1,000 Mg PO QID Tramadol Hcl 50 Mg Tablet 300 Mg PO DAILY PRN Uloric (Febuxostat) 80 Mg Tablet 1 Tab PO DAILY Aspirin 81 Mg Tab.chew 1 Tab PO DAILY Zyrtec (Cetirizine Hcl) 10 Mg Tablet 10 Mg PO DAILY LAST DOSE LAST NIGHT NEXT DOSE TONIGHT Melatonin 10 Mg Tablet 10 Mg PO HS Meds not given this hospital admission. May resume home medications as approved by Physician. Diphenhydramine Hcl 50 Mg Capsule 50 Mg PO HS Meds not given this hospital admission. May resume home medications as approved by Physician. Simvastatin 20 Mg Tablet 1 Tab PO QHS last dose last night next dose tonight Plaquenil (Hydroxychloroquine Sulfate) 200 Mg Tablet 200 Mg PO BID last dose this am next dose tonight Levothyroxine Sodium 175 Mcg Tablet 1 Tab PO DAILY last dose this am next dose tomorrow am Lasix (Furosemide) 80 Mg Tablet 1 Tab PO DAILY16 last dose yesterday next dose is due when home Lasix (Furosemide) 40 Mg Tablet 1 Tab PO DAILY last dose this am next dose tomorrow am Ventolin Hfa Inhaler (Albuterol Sulfate) 18 Gm Hfa.aer.ad 2 Puff INH QID not used in hospital may resume when needed Lunesta (Eszopiclone) 3 Mg Tablet 1 Tab PO QHS Meds not given this hospital admission. May resume home medications as approved by Physician. Losartan Potassium 100 Mg Tablet 100 Mg PO DAILY last dose this am next dose tomorrow am Co Q-10 (Ubidecarenone) 100 Mg Capsule 100 Mg PO not given in hospital may reusme when available Foltx Tablet (B12/Levomefolate Calcium/B-6) 1 Each Tablet 1 Each PO HS not given in the hospital may resume when available Protonix (Pantoprazole Sodium) 40 Mg Granpkt.dr 40 Mg PO DAILY last dose yesterday next dose is at 0900 D3 Dots (Cholecalciferol (Vitamin D3)) 2,000 Unit Tablet 2,000 Unit PO LAST DOSE THIS AM NEXT DOSE TOMORROW AM Klor-Con (Potassium Chloride) 20 Meq Packet 40 Meq PO AFTRNOON last dos yesterday afternoon next dose this afternoon at 1600 Klor-Con (Potassium Chloride) 20 Meq Packet 20 Meq PO DAILY05 last dose this am next dose tomorrow am Garlic 1,000 Mg Capsule 1,000 Mg PO not given in hospital may resume when available Multi-Day Vitamins (Multivitamin) 1 Each Tablet 1 Tab PO DAILY Vitals/I & O Vital Sign - Last 24 Hours 06/22/18 06/22/18 06/22/18 06/22/18 14:52 15:00 17:01 19:00 Temp 98.0 97.5 98.0 97.5 Pulse 92 90 Resp 18 18 B/P (MAP) 115/56 (75) 107/59 (75) Pulse Ox 96 96 100 O2 Delivery Nasal Cannula Room Air Room Air Room Air O2 Flow Rate 2.0 06/22/18 06/22/18 06/22/18 06/22/18 20:00 20:18 22:26 23:00 Temp 97.9 97.9 Pulse 81 Resp 20 22 B/P (MAP) 149/86 (107) Pulse Ox 100 95 O2 Delivery Nasal Cannula Nasal Cannula Nasal Cannula Room Air O2 Flow Rate 2.0 2.0 2.0 06/23/18 06/23/18 06/23/18 06/23/18 03:00 07:00 07:32 07:57 Temp 99.6 99.1 99.6 99.1 Pulse 96 98 Resp 20 18 B/P (MAP) 134/66 (88) 113/62 (79) Pulse Ox 96 94 98 98 O2 Delivery Room Air Nasal Cannula Nasal Cannula Nasal Cannula O2 Flow Rate 2.0 2.0 2.0 06/23/18 06/23/18 06/23/18 06/23/18 07:58 08:00 09:00 11:00 Temp 98.1 98.1 Pulse 98 103 Resp 18 B/P (MAP) 113/62 105/50 (68) Pulse Ox 98 90 O2 Delivery Nasal Cannula Nasal Cannula Room Air O2 Flow Rate 2.0 2.0 06/23/18 11:30 O2 Delivery Nasal Cannula O2 Flow Rate 2.0 CHIRAG BELTRAN MD Jun 23, 2018 13:40
--- NOTE | 2018-06-23 13:42 | DISCH ---
DISCHARGE INSTRUCTIONS Condition on Discharge Condition on Discharge: Stable Activity After Discharge Activity Instructions for Disc: Other, see below (no lifting over 20 lbs) Diet after Discharge Diet after Discharge: Full Liquid ("slippery diet") Liquid Texture: Thin Liquid Wound Incision Care Wound/Incision Care: Other, see below (may remove bandaids and shower) Follow-Up Follow up with: Dr Beltran in 2 weeks in office; call for appt [phone] CHIRAG BELTRAN MD Jun 23, 2018 13:42
--- NOTE | 2018-06-23 13:45 | PDOC3 ---
Discharge Summary Visit Information Date of Admission: Jun 21, 2018 Date of Discharge: Jun 23, 2018 Admitting Diagnosis: Hiatal hernia, GERD Brief Hospital Course Allergies Allergies Coded Allergies Type Severity Reaction Last Updated Verified chlorhexidine Allergy Intermediate PRURITIS 06/17/18 Yes morphine Allergy Intermediate Itching/HIVES 06/22/18 Yes propoxyphene Allergy Intermediate Itching 06/17/18 Yes erythromycin base Adverse Reaction Intermediate Hives, EYES SWELL 06/17/18 Yes hydromorphone Adverse Reaction Intermediate Itching 06/17/18 Yes Vital Signs Vital Signs Date Time Temp Pulse Resp B/P (MAP) Pulse Ox O2 Delivery O2 Flow Rate FiO2 06/23/18 11:30 Nasal Cannula 2.0 06/23/18 11:00 98.1 103 18 105/50 (68) 90 98.1 Brief Hospital Course Ms. Perdomo is a 72 old female who presented with a large hiatal hernia. She was admitted on 06/21/18 and underwent a laparoscopic repair of the hernia with Tomas fundoplication. Her postoperative recovery was uneventful. Discharge Information Condition at Discharge: Stable Follow Up: Weeks (2 weeks) Disposition/Orders: D/C to Home Scheduled Acetaminophen (Tylenol) 325 Mg Tablet, 1,000 MG PO QID, (Reported) Entered as Reported by: SAMSON PIPER on 12/04/17 0655 Last Taken: Unknown Dose on 06/21/18 0300 Last Action: HELD on 06/21/18 1140 by CHIRAG BELTRAN Albuterol Sulfate (Ventolin Hfa Inhaler) 18 Gm Hfa.aer.ad, 2 PUFF INH QID for FOR ASTHMA, Ref 0 (Reported) not used in hospital may resume when needed Entered as Reported by: JARRED TOLENTINO on 01/08/16 1522 Last Taken: Unknown Dose on 05/05/18 Last Action: Converted on 06/21/18 1139 by CHIRAG BELTRAN Aspirin (Aspirin) 81 Mg Tab.chew, 1 TAB PO DAILY, #30 Ref 3 (Reported) Entered as Reported by: SAMSON PIPER on 12/04/17 0645 Last Taken: Unknown Dose on 06/02/18 Last Action: HELD on 06/21/18 1139 by CHIRAG BELTRAN B12/Levomefolate Calcium/B-6 (Foltx Tablet) 1 Each Tablet, 1 EACH PO HS for supplement, (Reported) not given in the hospital may resume when available Entered as Reported by: JARRED TOLENTINO on 01/08/16 152 Last Taken: Unknown Dose on 06/20/18 Last Action: HELD on 06/21/18 113 by CHIRAG BELTRAN Biotin (Biotin) 2,500 Mcg Capsule, 10,000 MCG PO DAILY, (Reported) Entered as Reported by: SAMSON PIPER on 12/04/17 0700 Last Taken: Unknown Dose on 06/20/18 Last Action: HELD on 06/21/18 1140 by CHIRAG BELTRAN Cetirizine Hcl (Zyrtec) 10 Mg Tablet, 10 MG PO DAILY, (Reported) LAST DOSE LAST NIGHT NEXT DOSE TONIGHT Entered as Reported by: ALESSANDRA GRESHAM on 02/23/17 1422 Last Taken: Unknown Dose on 06/20/18 Last Action: HELD on 06/21/18 113 by CHIRAG BELTRAN Diphenhydramine Hcl (Diphenhydramine Hcl) 50 Mg Capsule, 50 MG PO HS, (Reported) Meds not given this hospital admission. May resume home medications as approved by Physician. Entered as Reported by: ALESSANDRA GRESHAM on 02/23/17 1419 Last Taken: Unknown Dose on 06/20/18 Last Action: HELD on 06/21/18 113 by CHIRAG BELTRAN Eszopiclone (Lunesta) 3 Mg Tablet, 1 TAB PO QHS for insomnia, #30 Ref 1 ( Reported) Meds not given this hospital admission. May resume home medications as approved by Physician. Entered as Reported by: JARRED TOLENTINO on 01/08/161521 Last Taken: Unknown Dose on 06/20/18 Last Action: Converted on 06/21/18 1139 by CHIRAG BELTRAN Febuxostat (Uloric) 80 Mg Tablet, 1 TAB PO DAILY, #90 Ref 1 (Reported) Entered as Reported by: SAMSON PIPER on 12/04/17 0646 Last Taken: Unknown Dose on 06/21/18 0300 Last Action: HELD on 06/21/18 1139 by CHIRAG BELTRAN Furosemide (Lasix) 40 Mg Tablet, 1 TAB PO DAILY for diuretic, #90 Ref 1 ( Reported) last dose this am next dose tomorrow am Entered as Reported by: JARRED TOLENTINO on 01/08/16 152 Last Taken: Unknown Dose on 06/21/18299 Last Action: Continued on 1138 by CHIRAG BELTRAN Furosemide (Lasix) 80 Mg Tablet, 1 TAB PO DAILY16 for diuretic, #30 Ref 5 ( Reported) last dose yesterday next dose is due when home Entered as Reported by: JARRED TOLENTINO on 01/08/16 1522 Last Taken: Unknown Dose on 06/20/18 Last Action: Continued on 06/21/181138 by CHIRAG BELTRAN Hydroxychloroquine Sulfate (Plaquenil) 200 Mg Tablet, 200 MG PO BID for arthritis, (Reported) last dose this am next dose tonight Entered as Reported by: JARRED TOLENTINO on 01/08/16 152 Last Taken: Unknown Dose on 06/21/18299 Last Action: Converted on 1138 by CHIRAG BELTRAN Levothyroxine Sodium (Levothyroxine Sodium) 175 Mcg Tablet, 1 TAB PO DAILY for thyroid, #30 Ref 5 (Reported) last dose this am next dose tomorrow am Entered as Reported by: JARRED TOLENTINO on 01/08/16 152 Last Taken: Unknown Dose on 06/21/18299 Last Action: Continued on 1138 by CHIRAG BELTRAN Losartan Potassium (Losartan Potassium) 100 Mg Tablet, 100 MG PO DAILY for blood pressure, (Reported) last dose this am next dose tomorrow am Entered as Reported by: JARRED TOLENTINO on 01/08/16 152 Last Taken: Unknown Dose on 06/21/180 Last Action: Converted on 1138 by CHIRAG BELTRAN Melatonin (Melatonin) 10 Mg Tablet, 10 MG PO HS, (Reported) Meds not given this hospital admission. May resume home medications as approved by Physician. Entered as Reported by: ALESSANDRA GRESHAM on 02/23/17 1421 Last Taken: Unknown Dose on 06/20/18 Last Action: Converted on 06/21/181138 by CHIRAG BELTRAN Metoclopramide Hcl (Reglan) 10 Mg Tablet, 1 TAB PO QID, #120 (Reported) Entered as Reported by: SAMSON PIPER on 12/04/17 0656 Last Taken: Unknown Dose on 06/21/18 0300 Last Action: HELD on 06/21/18 1140 by CHIRAG BELTRAN Multivitamin (Multi-Day Vitamins) 1 Each Tablet, 1 TAB PO DAILY for supplement, #30 (Reported) Entered as Reported by: JARRED TOLENTINO on 01/08/16 152 Last Taken: Unknown Dose on 06/02/18 Last Action: HELD on 06/21/18 1139 by CHIRAG BELTRAN [place]-3 Fatty Acids/Fish Oil (Fish Oil 1,000 Mg Capsule) 1 Each Capsule, 2 EACH PO BID, (Reported) Entered as Reported by: SAMSON PIPER on 12/04/17 0659 Last Taken: Unknown Dose on 06/02/18 Last Action: HELD on 06/21/18 1140 by CHIRAG BELTRAN Pantoprazole Sodium (Protonix) 40 Mg Granpkt.dr, 40 MG PO DAILY for stomach, ( Reported) last dose yesterday next dose is at 0900 Entered as Reported by: JARRED TOLENTINO on 01/08/161521 Last Taken: Unknown Dose on 06/20/18 Last Action: HELD on 06/21/18 1139 by CHIRAG BELTRAN Polyethylene Glycol 3350 (Miralax) 17 Gm Powd.pack, 1 PACKET PO QODAY, #30 Ref 3 (Reported) Entered as Reported by: SAMSON PIPER on 12/04/17 0659 Last Taken: Unknown Dose on 06/20/18 Last Action: HELD on 06/21/18 1140 by CHIRAG BELTRAN Potassium Chloride (Klor-Con) 20 Meq Packet, 20 MEQ PO DAILY05 for supplement, ( Reported) last dose this am next dose tomorrow am Entered as Reported by: JARRED TOLENTINO on 01/08/161521 Last Taken: Unknown Dose on 06/21/18 0300 Last Action: Converted on 1139 by CHIRAG BELTRAN Potassium Chloride (Klor-Con) 20 Meq Packet, 40 MEQ PO AFTRNOON for supplement, (Reported) last dos yesterday afternoon next dose this afternoon at 1600 Entered as Reported by: JARRED TOLENTINO on 01/08/161521 Last Taken: Unknown Dose on 06/20/18 Last Action: Converted on 06/21/18 1139 by CHIRAG BELTRAN Simvastatin (Simvastatin) 20 Mg Tablet, 1 TAB PO QHS for cholesterol, #30 Ref 5 (Reported) last dose last night next dose tonight Entered as Reported by: JARRED TOLENTINO on 01/08/161521 Last Taken: Unknown Dose on 06/20/18 Last Action: Converted on 06/21/18 1139 by CHIRAG BELTRAN Scheduled PRN Tramadol Hcl (Tramadol Hcl) 50 Mg Tablet, 300 MG PO DAILY PRN for PAIN, ( Reported) Entered as Reported by: SAMSON PIPER on 12/04/17 0651 Last Taken: Unknown Dose on 06/21/18 0300 Last Action: HELD on 06/21/18 1140 by CHIRAG BELTRAN Triamcinolone Acetonide (Triamcinolone Acetonide 0.1% Cream) 15 Gm Cream..g., 1 NEFTALI TP DAILY PRN for ITCHING, (Reported) Entered as Reported by: SAMSON PIPER on 12/04/17 0705 Last Taken: Unknown Dose on 06/20/18 Last Action: HELD on 06/21/18 114 by CHIRAG BELTRAN Miscellaneous Medications Cholecalciferol (Vitamin D3) (D3 Dots) 2,000 Unit Tablet, 2,000 UNIT PO for supplement, (Reported) LAST DOSE THIS AM NEXT DOSE TOMORROW AM Entered as Reported by: JARRED TOLENTINO on 01/08/161521 Last Taken: Unknown Dose on 06/20/18 Last Action: HELD on 06/21/18 113 by CHIRAG BELTRAN Garlic (Garlic) 1,000 Mg Capsule, 1,000 MG PO for supplement, (Reported) not given in hospital may resume when available Entered as Reported by: JARRED TOLENTINO on 01/08/161521 Last Taken: Unknown Dose on 06/02/18 Last Action: HELD on 06/21/18 1139 by CHIRAG BELTRAN Ubidecarenone (Co Q-10) 100 Mg Capsule, 100 MG PO for supplement, (Reported) not given in hospital may reusme when available Entered as Reported by: JARRED TOLENTINO on 01/08/161521 Last Taken: Unknown Dose on 06/20/18 Last Action: HELD on 06/21/18 1139 by CHIRAG BELTRAN Discontinued Medications Bisacodyl (Dulcolax) 5 Mg Tablet., 2 TAB PO HS for constipation, #4 (Reported) last dose last night next dose tonight Entered as Reported by: JARRED TOLENTINO on 01/08/161521 Last Action: Discontinued on 10/1700 by SAMSON PIPER Gluc/Leo-Msm#2/C/D3/Trev/Born (Swqjelefvn-Jhnyzrnuliy-Kre Tab) 1 Each Tablet, 1 EACH PO, (Reported) Meds not given this hospital admission. May resume home medications as approved by Physician. Entered as Reported by: JARRED TOLENTINO on 01/08/161521 Last Action: Discontinued on 06/21/18700 by SAMSON PIPER Psyllium Husk (Metamucil) 660 Gm Powder, 660 GM PO DAILY for constipation, ( Reported) not given in the hospital may reume when available Entered as Reported by: JARRED TOLENTINO on 01/08/161521 Last Action: Discontinued on 06/21/18700 by CHIRAG MACDONALD MD Jun 23, 2018 13:45
== END 2018-06-23 15:20 | disposition home or self-care (01) | DRG 328 ==
LOC: SURG 06:06 → EDSTATUS 07:30 → 4 NORTH 11:34
PROVIDERS: ADMIT Surgery; ATTEND Surgery
PROC: 0BUT4JZ Supplement Diaphragm with Synthetic Substitute, Percutaneous Endoscopic Approach (ICD-10-PCS; 2018-06-21)
PROC: 0DV44ZZ Restriction of Esophagogastric Junction, Percutaneous Endoscopic Approach (ICD-10-PCS; principal; 2018-06-21 07:30)
DX: K44.9 Diaphragmatic hernia without obstruction or gangrene (principal); K21.9 Gastro-esophageal reflux disease without esophagitis; Z88.8 Allergy status to other drugs, medicaments and biological substances; Z79.899 Other long term (current) drug therapy; Z88.6 Allergy status to analgesic agent; Z88.1 Allergy status to other antibiotic agents
CPT/HCPCS: 88302; 94640; 94760; A7015; C1781; J0330; J0690; J0780; J1100; J1885; J2250; J2405; J2704; J2710; J3010; J3490; J7030; J7120; J7613; S0028